=== PATIENT | female | born 1935 | race Caucasian/White ===

== ENCOUNTER 2019-11-28 07:54 | Outpatient (CLI) | payer MEDICARE, SELFPAY ==
[2019-11-28 09:30] LABS: Anion Gap 17.3 (5-19); Blood Urea Nitrogen 35 mg/dL (8-23); Calcium 8.8 mg/Dl (8.8-10.2); Carbon Dioxide 23 mmol/L (22-29); Chloride 100 mmol/L (98-107); Glucose 116 mg/dL (74-106); Potassium 4.3 mmol/L (3.5-5.1); Sodium 136 mmol/L (136-145)
== END 2019-11-28 07:55 | disposition home or self-care (01) ==
LOC: ONCMED 07:57
PROVIDERS: Family Provider Family Medicine; Visit Provider Internal Medicine Medical Oncology
DX: Z45.2 Encounter for adjustment and management of vascular access device (principal)
CPT/HCPCS: 36591; 80048

== ENCOUNTER 2019-12-29 07:49 | Outpatient (CLI) | payer MEDICARE, SELFPAY | END 2019-12-29 07:50 | disposition home or self-care (01) | LOC: ONCMED 07:51 | PROVIDERS: Family Provider Family Medicine; PCP Family Medicine; Visit Provider Internal Medicine Medical Oncology | DX: Z45.2 Encounter for adjustment and management of vascular access device (principal) | CPT/HCPCS: 96523 ==

== ENCOUNTER 2020-01-26 07:51 | Outpatient (CLI) | payer MEDICARE, SELFPAY | END 2020-01-26 07:52 | disposition home or self-care (01) | LOC: ONCMED 07:55 | PROVIDERS: Family Provider Family Medicine; PCP Family Medicine; Visit Provider Internal Medicine Medical Oncology | DX: Z45.2 Encounter for adjustment and management of vascular access device (principal) | CPT/HCPCS: 96523 ==

== ENCOUNTER 2020-02-28 09:30 | Outpatient (CLI) | payer MEDICARE, SELFPAY ==
[2020-02-28 09:59] LABS: Basophils % 0.7 %; Eosinophils # 0.2 10^3/uL (0.0-0.8); Eosinophils % 3.5 %; Hematocrit 30.6 % (37.0-47.0); Hemoglobin 9.6 g/dL (11.5-15.3); Lymphocytes # 1.6 10^3/uL (0.8-4.8); Mean Corpuscular HGB Conc 31.4 g/dL (30.0-36.0); Mean Corpuscular Volume 98.7 fL (81-99); Mean Platelet Volume 8.5 fL (7.4-10.4); Monocytes # 0.5 10^3/uL (0.2-0.9); Monocytes % 8.7 %; Neutrophils # 3.6 10^3/uL (1.8-7.7); Neutrophils % 60.9 %; Nucleated Red Blood Cells % 0 %; Platelet Count 355 10^3/cmm (130-400); Red Cell Distribution Width 12.6 % (12.1-15.1)
[2020-02-28 10:22] LABS: Alanine Aminotransferase 16 U/L (0-33); Albumin Level 4.1 g/dL (3.5-5.2); Alkaline Phosphatase 100 IU/L (35-105); Anion Gap 16.7 (5-19); Aspartate Amino Transferase 20 U/L (0-32); Blood Urea Nitrogen 40 mg/dL (8-23); Calcium 9.8 mg/dL (8.5-10.5); Carbon Dioxide 24 mmol/L (22-29); Chloride 105 mmol/L (98-107); Globulin 2.8 g/dL (1.3-4.6); Glucose 90 mg/dL (65-115); Osmolality Calculated 289 mOsm/kg (285-295); Potassium 4.7 mmol/L (3.5-5.1); Sodium 141 mmol/L (136-145); Thyroid Stimulating Hormone 3.74 uIU/mL (0.27-4.20); Total Bilirubin 0.3 mg/dL (0.15-1.2); Total Protein 6.9 g/dL (6.6-8.7)
--- NOTE | 2020-03-02 13:24 | ONC FU_ITS ---
Dr. aKplan Patient Follow-Up Note Patient: Roxane Krishnan Unit #: [id number]: 1935 Dicatated By: Juan Daniel Kaplan M.D.Date of Visit:Feb 28, 2020 Onc Med Follow-up/Prog Note Chief Complaint: Breast cancer/endometrial cancer. History of Present Illness: This is an 84 year-old woman with infiltrating lobular carcinoma of the left breast, stage IIA (T1mi, pN1a, M0) and stage IIIC2 endometrial cancer. The breast cancer occurred in association with multifocal comedo carcinoma in situ. There were microscopic foci of invasive lobular carcinoma. She underwent left modified radical mastectomy in June 2003. Pathology showed involvement in 1 of 12 axillary lymph nodes. The tumor was ER/FL positive and HER-2/radha negative. She was given adjuvant chemotherapy with FEC. Due to multiple toxicities, the treatment was stopped in September 2003 after completing 4 cycles. She was then given adjuvant hormonal therapy with tamoxifen. The hormonal treatment was changed to Arimidex as of February 2006. She continued treatment through September 2009. Thus far during followup, there has been no evidence of recurrence of her breast cancer. In April 2013 she presented with postmenopausal bleeding. She was found on D&C to have endometrial cancer. On 05/04/13 she underwent modified radical robotic-assisted total laparoscopic hysterectomy, bilateral salpingo-oophorectomy, and pelvic and periaortic lymphadenectomy. Pathology showed grade 1-2 adenocarcinoma which was superficially invasive. It measured 2 x 1.5 cm. There was no cervical or parametrial involvement. The maximum depth of myometrial invasion was 2 mm/16 mm. Margins were negative. There is no vascular or lymphatic invasion in the primary tumor, but there was involvement in 2 of 5 right para-aortic lymph nodes and in 2 of 7 right pelvic lymph nodes. The final staging was IIIC2 (pT1a, pN2, M0). The tumor was classified as grade 3 based on the fact that the specimen from the initial D&C procedure contained large areas of grade 3 adenocarcinoma. She was given postoperative external beam radiation to the pelvis and periaortic regions to a total dose of 45 Gy, which she completed on 08/25/2013. She subsequently completed intracavitary vaginal brachytherapy in [place]. At the recommendation of Dr. Camarillo, she was given adjuvant chemotherapy with carboplatin/Taxol. As of 02/13/2014 she had completed 4 cycles of treatment. She was then followed on observation/expectant management. Her other medical illnesses include hypertension, hyperlipidemia, hyperthyroidism, COPD, and GERD. She also has chronic kidney disease. She has remained moderately anemic following her chemotherapy and radiation. She has a history of smoking a pack of cigarettes daily for 35 years, but she quit smoking more than 15 years ago. INTERIM HISTORY: In September 2017 she had presented with significant pain in the lower back/pelvis area. Her CT abdomen/pelvis showed extensive bilateral sacral insufficiency fractures. There was no evidence of metastatic disease. She was referred for physical therapy. She had further evaluation with DEXA scan on 10/21/2017. It showed evidence of osteopenia with T score -0.5 and lumbar spine, -2.1 in the left femoral neck, and -2.3 in the right femoral neck. She did agree to start treatment with Prolia in January 2018. She is seen for a scheduled visit. Her main complaint is that her left hip has been hurting, enough that at times it is difficult for her to bear weight. She thinks it is getting better gradually. She has had similar episodes twice in the past. She still complains that she does not have a whole lot of energy. Her activity is limited. ECOG score is 2. She has good appetite. She has no fever or night sweats. She has a little bit of sinus drainage. She does get short of breath really easy. She has a little bit of cough in the mornings. She does not complain of chest pain. She has no GI/ complaints other than diarrhea, which is chronic and adequately managed with Imodium. She currently has no other joint or bone pain. She does not complain of headache. She occasionally has dizziness. She has residual neuropathy, which is unchanged. Medications: Advair Diskus 1 (250-50 mcg/dose) Aerosol Powder, Breath Activated Inhalation b.i.d., Albuterol Sulfate 1 (108 (90 base) mcg/act) Aerosol Powder, Breath Activated Inhalation four times a day PRN, B-12 1 (500 mcg) Tablet Oral daily, Fish Oil 1000 mg - Take 1 Capsule Oral daily, Imodium A-D 1 Tablet (of 4 mg) Oral b.i.d. PRN, Magnesium 1 Tablet (of 400 mg) Oral daily, Propylthiouracil 50 mg - Take 2 Tablet Oral b.i.d., Vitamin D3 1 Capsule Oral daily Allergies: BLEACH, Cephalexin, KEFLEX, and LEVAQUIN. Review of Systems: Constitutional - Her energy level is low. She is mainly sedentary at home. Appetite is good and weight is stable. No fever, chills, hot flashes, or night sweats. ECOG score is 2, ENMT - She has some sinus congestion/drainage. No mouth sores. No sore throat or difficulty swallowing, Hematologic/Lymphatic - No abnormal bruising or bleeding, Respiratory - She gets shortness of breath with activity. No cough. No pleuritic pain or hemoptysis, Cardiovascular - No angina pain. No palpitations, Gastrointestinal - No nausea or vomiting. No heartburn or acid reflux. She has diarrhea that is managed with Imodium. No constipation. No blood in the stool or black stools, Genitourinary (F) - No dysuria or hematuria. No urinary frequency. No urgency or incontinence, Musculoskeletal - She has pain in her left hip, Integumentary - No skin complications, Neurologic - No headache or dizziness. She has numbness and tingling in her feet, unchanged, Psychiatric - No anxiety or depression. No insomnia. Vital Signs: Performed on Feb 28, 2020 10:37 Height - 62.00 in Weight - 148.0 lbs (HIGH) BSA - 1.68 sq.m BMI - 27.07 Temperature - 97.7 F (LOW) Pulse - 75 /min Respiration - 18 /min BP - 130/62 mm(hg) O2 Sat - 98 % Pain - 9 Physical Examination: Constitutional - She appears somewhat frail generally, Eyes - Sclerae nonicteric. Conjunctivae clear, ENMT - No lesions noted in the oral cavity, Hematologic/Lymphatic - No cervical, clavicular, or axillary adenopathy, Respiratory - Lungs sound clear with diminished air movement bilaterally, Cardiovascular - Heart rhythm is regular. There is no murmur, gallop, or rub noted, Abdomen - Soft. Liver and spleen are not enlarged. There is no abdominal mass or ascites noted and there is no inguinal adenopathy, Extremities - Trace edema, Neurologic - No focal neurologic deficits noted. Lab/Imaging: Test performed on Feb 28, 2020 09:45 Sodium 141 mmol/L TSH 3.74 uIU/mL Potassium 4.7 mmol/L Chloride 105 mmol/L CO2 24 mmol/L Anion Gap 16.7 BUN 40 mg/dL Creatinine 2.1 mg/dL Cr Clearance (Est) 21.89 mL/min Glucose 90 mg/dL Calcium 9.8 mg/dL Protein, Total 6.9 g/dL Albumin 4.1 g/dL Globulin 2.8 g/dL Bilirubin, Total 0.3 mg/dL ALT (SGPT) 16 U/L AST (SGOT) 20 U/L Alkaline Phosphatase 100 IU/L WBC 6.0 10 3/uL RBC 3.10 10 6/uL HGB 9.6 g/dL HCT 30.6 % MCV 98.7 fL MCH 31.0 pg MCHC 31.4 g/dL RDW 12.6 % Platelet Count 355 10 3/cmm MPV 8.5 fL Neutrophils 3.6 10 3/uL Lymphocytes 1.6 10 3/uL Monocytes 0.5 10 3/uL Eosinophils 0.2 10 3/uL Basophils 0.0 10 3/uL Neutrophil % 60.9 % Lymphocyte % 26.0 % Monocyte % 8.7 % Eosinophil % 3.5 % Basophils % 0.7 % Impression: 1. Patient with grade 3 adenocarcinoma of the endometrium, stage IIIC2 (pT1a, pN2, M0). Treatment included robotic-assisted total laparoscopic hysterectomy/bilateral salpingo-oophorectomy and pelvic and periaortic lymph node dissection on 05/04/13 followed by postoperative external beam radiation to the pelvis and periaortic lymph nodes followed by intracavitary vaginal brachial therapy. 2. She was then given adjuvant chemotherapy with 4 cycles of carboplatin/Taxol, which she completed in February 2014. Toxicities included anemia and peripheral neuropathy. She recovered pretty well from the chemotherapy, though she has had residual neuropathy. 3. She has additional history of infiltrating lobular carcinoma the left breast, stage IIA, ER/FL positive and HER-2/radha negative. Her treatment included left modified radical mastectomy in June 2003 followed by adjuvant chemotherapy and adjuvant hormonal therapy. 4. During followup she has remained moderately anemic. Her other medical illnesses include: 5. Hypertension. 6. Hyperlipidemia. 7. Chronic kidney disease. 8. COPD. 9. GERD. 10. Hyperthyroidism. During her follow-up she has had evidence of chronic kidney disease, but was stable renal function, and she has been mildly anemic. In September 2017 she had presented with significant pain in the lower back/pelvis area. Her CT abdomen/pelvis at that time showed extensive bilateral sacral insufficiency fractures. There was no evidence of metastatic disease. Her bone density in October 2017 showed T score -0.5 in the lumbar spine, -2.1 in the left femoral neck, and -2.3 in the right femoral neck. She started treatment with Prolia in January 2018. As of her follow-up visit in August 2019 she had reported worsening back pain, but seems to have improved. Recently, though, she has been having significant pain in the left hip area, enough that at times it is difficult for her to bear weight. She thinks it is getting better, and she has had similar episodes on 2 occasions in the past. Overall, she continues to have somewhat marginal performance status, but there has been no evidence of recurrence of the breast cancer or the endometrial cancer. Plan: She remains on observation/expectant management for the breast cancer and the endometrial cancer. She will be given Prolia 60 mg by subcutaneous injection for the osteoporosis. She will be scheduled for a follow-up visit in 6 months. In the meantime, she is to let us know if the hip pain is not getting better. Signed By: Juan Daniel Kaplan M.D. <<Signature on File>>
== END 2020-02-28 09:31 | disposition home or self-care (01) ==
LOC: ONCMED 09:30
PROVIDERS: Family Provider Family Medicine; PCP Family Medicine; Visit Provider Internal Medicine Medical Oncology
DX: M81.0 Age-related osteoporosis without current pathological fracture; D64.9 Anemia, unspecified; E78.49 Other hyperlipidemia; J44.9 Chronic obstructive pulmonary disease, unspecified; K21.9 Gastro-esophageal reflux disease without esophagitis; E03.8 Other specified hypothyroidism; M25.552 Pain in left hip; E05.90 Thyrotoxicosis, unspecified without thyrotoxic crisis or storm; G62.0 Drug-induced polyneuropathy; T45.1X5D Adverse effect of antineoplastic and immunosuppressive drugs, subsequent encounter; I12.9 Hypertensive chronic kidney disease with stage 1 through stage 4 chronic kidney disease, or unspecified chronic kidney disease; N18.9 Chronic kidney disease, unspecified; Z92.21 Personal history of antineoplastic chemotherapy; Z92.3 Personal history of irradiation; Z87.891 Personal history of nicotine dependence; Z90.710 Acquired absence of both cervix and uterus; Z90.12 Acquired absence of left breast and nipple; Z92.23 Personal history of estrogen therapy; Z85.3 Personal history of malignant neoplasm of breast; Z85.42 Personal history of malignant neoplasm of other parts of uterus
CPT/HCPCS: 36591; 80053; 84443; 85025; 96372; 99214; J0897

== ENCOUNTER 2020-03-29 07:53 | Outpatient (CLI) | payer MEDICARE, SELFPAY | END 2020-03-29 07:54 | disposition home or self-care (01) | LOC: ONCMED 07:55 | PROVIDERS: PCP Family Medicine; Visit Provider Internal Medicine Medical Oncology | DX: Z45.2 Encounter for adjustment and management of vascular access device (principal); C50.812 Malignant neoplasm of overlapping sites of left female breast; Z17.0 Estrogen receptor positive status [ER+]; D64.89 Other specified anemias | CPT/HCPCS: 96523 ==

== ENCOUNTER 2020-04-26 07:50 | Outpatient (CLI) | payer MEDICARE, SELFPAY | END 2020-04-26 07:51 | disposition home or self-care (01) | LOC: ONCMED 07:52 | PROVIDERS: PCP Family Medicine; Visit Provider Internal Medicine Medical Oncology | DX: Z45.2 Encounter for adjustment and management of vascular access device (principal) | CPT/HCPCS: 96523 ==

== ENCOUNTER 2020-05-29 07:47 | Outpatient (CLI) | payer MEDICARE, SELFPAY ==
[2020-05-29 09:11] LABS: Anion Gap 15.1 (5-19); Blood Urea Nitrogen 32 mg/dL (8-23); Calcium 8.8 mg/dL (8.5-10.5); Carbon Dioxide 23 mmol/L (22-29); Chloride 103 mmol/L (98-107); Glucose 103 mg/dL (65-115); Osmolality Calculated 279 mOsm/kg (285-295); Potassium 5.1 mmol/L (3.5-5.1); Sodium 136 mmol/L (136-145)
[2020-05-29 09:12] LABS: Urine Protein Random 5 mg/dL
== END 2020-05-29 07:48 | disposition home or self-care (01) ==
LOC: ONCMED 07:48
PROVIDERS: PCP Family Medicine; Visit Provider Internal Medicine Medical Oncology
DX: N18.3 Chronic kidney disease, stage 3 (moderate) (principal)
CPT/HCPCS: 36591; 80048; 84156

== ENCOUNTER 2020-06-28 08:04 | Outpatient (CLI) | payer MEDICARE, SELFPAY | END 2020-06-28 08:05 | disposition home or self-care (01) | LOC: ONCMED 08:06 | PROVIDERS: PCP Family Medicine; Visit Provider Internal Medicine Medical Oncology | DX: Z45.2 Encounter for adjustment and management of vascular access device (principal) | CPT/HCPCS: 96523 ==

== ENCOUNTER 2020-07-30 07:54 | Outpatient (CLI) | payer MEDICARE, SELFPAY | END 2020-07-30 07:55 | disposition home or self-care (01) | LOC: ONCMED 07:55 | PROVIDERS: PCP Family Medicine; Visit Provider Internal Medicine Medical Oncology | DX: Z45.2 Encounter for adjustment and management of vascular access device (principal) | CPT/HCPCS: 96523 ==

== ENCOUNTER 2020-08-27 07:56 | Outpatient (CLI) | payer MEDICARE, SELFPAY ==
--- NOTE | 2020-08-27 07:59 | MM_ITS ---
WS: [id number] DIAGNOSTIC RIGHT DIGITAL MAMMOGRAM WITH CAD HISTORY: HX OF BREAST CA;LT cystectomy. COMPARISON: 09/08/2012 Technique: CC, MLO and ML views. Breast composition: There are scattered areas of fibroglandular density. There are numerous scattere d benign-appearing calcifications throughout the breast. No nipple retraction or mass. No architectur [place] distortion. MM/[place] [id number] IMPRESSION: BI-RADS: 2-Benign FOLLOW UP: 1 Year Follow-up
== END 2020-08-27 07:57 | disposition home or self-care (01) ==
LOC: ONCMED 07:57
PROVIDERS: PCP Family Medicine; Visit Provider Internal Medicine Medical Oncology
DX: Z85.3 Personal history of malignant neoplasm of breast (principal)
CPT/HCPCS: 77065

== ENCOUNTER 2020-08-29 06:07 | Outpatient (CLI) | payer MEDICARE, SELFPAY ==
[2020-08-29 08:40] LABS: Basophils # 0.1 10^3/uL (0.0-0.1); Eosinophils # 0.4 10^3/uL (0.0-0.8); Hematocrit 29.5 % (37.0-47.0); Hemoglobin 8.9 g/dL (11.5-15.3); Lymphocytes # 1.5 10^3/uL (0.8-4.8); Mean Corpuscular HGB Conc 30.2 g/dL (30.0-36.0); Mean Corpuscular Hemoglobin 29.5 pg (28.0-34.0); Mean Corpuscular Volume 97.7 fL (81-99); Mean Platelet Volume 8.5 fL (7.4-10.4); Monocytes # 0.5 10^3/uL (0.2-0.9); Monocytes % 6.9 %; Neutrophils # 4.37 10^3/uL (1.8-7.7); Neutrophils % 63.8 %; Nucleated Red Blood Cells % 0 %; Platelet Count 304 10^3/cmm (130-400); Red Blood Count 3.02 10^6/uL (4.1-5.3); Red Cell Distribution Width 12.9 % (12.1-15.1); White Blood Count 6.9 10^3/uL (4.0-10.0)
[2020-08-29 09:17] LABS: 25 Hydroxy Vitamin D 35 ng/mL (30-100); Alanine Aminotransferase 16 U/L (0-33); Albumin Level 4.1 g/dL (3.5-5.2); Alkaline Phosphatase 81 IU/L (35-105); Anion Gap 16.6 (5-19); Aspartate Amino Transferase 17 U/L (0-32); Blood Urea Nitrogen 40 mg/dL (8-23); Calcium 9.5 mg/dL (8.5-10.5); Carbon Dioxide 21 mmol/L (22-29); Chloride 102 mmol/L (98-107); Glucose 108 mg/dL (65-115); Osmolality Calculated 290 mOsm/kg (285-295); Potassium 4.6 mmol/L (3.5-5.1); Sodium 135 mmol/L (136-145); Thyroid Stimulating Hormone 3.06 uIU/mL (0.27-4.20); Total Bilirubin 0.3 mg/dL (0.15-1.2); Total Protein 7.1 g/dL (6.6-8.7)
[2020-08-29] MEDS: denosumab 60 mg SDV SUBCUT (10:30)
--- NOTE | 2020-09-01 18:12 | ONC FU_ITS ---
Dr. Kaplan Patient Follow-Up Note Patient: Roxane Krishnan Unit #: [id number]: [id number] Dicatated By: Juan Daniel Kaplan M.D.Date of Visit:Aug 29, 2020 Onc Med Follow-up/Prog Note Chief Complaint: Breast cancer/endometrial cancer. History of Present Illness: This is an 85 year-old woman with infiltrating lobular carcinoma of the left breast, stage IIA (T1mi, pN1a, M0) and stage IIIC2 endometrial cancer. The breast cancer occurred in association with multifocal comedo carcinoma in situ. There were microscopic foci of invasive lobular carcinoma. She underwent left modified radical mastectomy in June 2003. Pathology showed involvement in 1 of 12 axillary lymph nodes. The tumor was ER/IN positive and HER-2/radha negative. She was given adjuvant chemotherapy with FEC. Due to multiple toxicities, the treatment was stopped in September 2003 after completing 4 cycles. She was then given adjuvant hormonal therapy with tamoxifen. The hormonal treatment was changed to Arimidex as of February 2006. She continued treatment through September 2009. Thus far during followup, there has been no evidence of recurrence of her breast cancer. In April 2013 she presented with postmenopausal bleeding. She was found on D&C to have endometrial cancer. On 05/04/13 she underwent modified radical robotic-assisted total laparoscopic hysterectomy, bilateral salpingo-oophorectomy, and pelvic and periaortic lymphadenectomy. Pathology showed grade 1-2 adenocarcinoma which was superficially invasive. It measured 2 x 1.5 cm. There was no cervical or parametrial involvement. The maximum depth of myometrial invasion was 2 mm/16 mm. Margins were negative. There is no vascular or lymphatic invasion in the primary tumor, but there was involvement in 2 of 5 right para-aortic lymph nodes and in 2 of 7 right pelvic lymph nodes. The final staging was IIIC2 (pT1a, pN2, M0). The tumor was classified as grade 3 based on the fact that the specimen from the initial D&C procedure contained large areas of grade 3 adenocarcinoma. She was given postoperative external beam radiation to the pelvis and periaortic regions to a total dose of 45 Gy, which she completed on 08/25/2013. She subsequently completed intracavitary vaginal brachytherapy in [place]. At the recommendation of Dr. Camarillo, she was given adjuvant chemotherapy with carboplatin/Taxol. As of 02/13/2014 she had completed 4 cycles of treatment. She was then followed on observation/expectant management. Her other medical illnesses include hypertension, hyperlipidemia, hyperthyroidism, COPD, and GERD. She also has chronic kidney disease. She has remained moderately anemic following her chemotherapy and radiation. She has a history of smoking a pack of cigarettes daily for 35 years, but she quit smoking more than 15 years ago. INTERIM HISTORY: In September 2017 she had presented with significant pain in the lower back/pelvis area. Her CT abdomen/pelvis showed extensive bilateral sacral insufficiency fractures. There was no evidence of metastatic disease. She was referred for physical therapy. She had further evaluation with DEXA scan on 10/21/2017. It showed evidence of osteopenia with T score -0.5 and lumbar spine, -2.1 in the left femoral neck, and -2.3 in the right femoral neck. She did agree to start treatment with Prolia in January 2018. She is seen for a scheduled visit. She has been feeling pretty good generally, though she does complain of having tiredness in her legs. She says she cannot stay on her feet very long. She is trying to walk more, and she is able to do some light housework. ECOG score is 1. She has good appetite. She has no fever, night sweats, or hot flashes. She has some shortness of breath. She has just occasional cough. She does not complain of chest pain. She has no GI complaints. She sometimes has difficulty voiding, particularly in the mornings. She has no significant joint or bone pain. She does not complain of headache. She does have a lot of dysequilibrium, and she occasionally has dizziness. She has numbness/tingling in her feet. Medications: Advair Diskus 1 (250-50 mcg/dose) Aerosol Powder, Breath Activated Inhalation b.i.d., Albuterol Sulfate 1 (108 (90 base) mcg/act) Aerosol Powder, Breath Activated Inhalation four times a day PRN, B-12 1 (500 mcg) Tablet Oral daily, Fish Oil 1000 mg - Take 1 Capsule Oral daily, Imodium A-D 1 Tablet (of 4 mg) Oral b.i.d. PRN, Magnesium 1 Tablet (of 400 mg) Oral daily, Propylthiouracil 50 mg - Take 2 Tablet Oral b.i.d., Vitamin D3 1 Capsule Oral daily Allergies: BLEACH, Cephalexin, KEFLEX, and LEVAQUIN. Review of Systems: Constitutional - She complains of having tiredness in her legs. Her activity is limited, but she is trying to walk. She is able to do some light housework. Appetite is good. She has no fever, night sweats, or hot flashes. ECOG score is 1, ENMT - No sinus congestion/drainage. No mouth sores. No sore throat or difficulty swallowing, Hematologic/Lymphatic - No abnormal bruising or bleeding, Respiratory - She has some shortness of breath. She has occasional cough. No pleuritic pain or hemoptysis, Cardiovascular - No angina pain. No palpitations, Gastrointestinal - No nausea or vomiting. No heartburn or acid reflux. No diarrhea or constipation. No blood in the stool or black stools, Genitourinary (F) - She sometimes has difficulty voiding. No dysuria or hematuria. No urinary frequency. No urgency or incontinence, Musculoskeletal - No joint or bone pain, Neurologic - No headache. She has a lot of dysequilibrium and she occasionally has dizziness. She has numbness/tingling in her feet, Psychiatric - No anxiety or depression. No insomnia. Vital Signs: Performed on Aug 29, 2020 09:56 Height - 62.00 in Weight - 148.8 lbs (HIGH) BSA - 1.69 sq.m BMI - 27.22 Temperature - 97.8 F (LOW) Pulse - 96 /min Respiration - 24 /min BP - 153/53 mm(hg) (HIGH) O2 Sat - 96 % Pain - 0 Physical Examination: Constitutional - She appears somewhat frail generally, Eyes - Sclerae nonicteric. Conjunctivae clear, ENMT - No lesions noted in the oral cavity, Hematologic/Lymphatic - No cervical, clavicular, or axillary adenopathy, Respiratory - Lungs sound clear, Cardiovascular - Heart rhythm is regular. There is no murmur, gallop, or rub noted, Abdomen - Soft. Liver and spleen are not enlarged. There is no abdominal mass or ascites noted and there is no inguinal adenopathy, Extremities - No edema. Dorsalis pedis pulses are palpable bilaterally, Neurologic - No focal neurologic deficits noted. Lab/Imaging: Test performed on Aug 29, 2020 08:00 Sodium 135 mmol/L CO2 21 mmol/L BUN 40 mg/dL Creatinine 1.8 mg/dL Cr Clearance (Est) 25.23 mL/min WBC 6.9 10 3/uL RBC 3.02 10 6/uL HGB 8.9 g/dL HCT 29.5 % MCV 97.7 fL MCH 29.5 pg MCHC 30.2 g/dL RDW 12.9 % Platelet Count 304 10 3/cmm MPV 8.5 fL Neutrophils 4.37 10 3/uL Lymphocytes 1.5 10 3/uL Monocytes 0.5 10 3/uL Eosinophils 0.4 10 3/uL Basophils 0.1 10 3/uL Neutrophil % 63.8 % Lymphocyte % 22.0 % Monocyte % 6.9 % Eosinophil % 6.0 % Basophils % 1.0 % NRBC % 0 % Impression: 1. Patient with grade 3 adenocarcinoma of the endometrium, stage IIIC2 (pT1a, pN2, M0). Treatment included robotic-assisted total laparoscopic hysterectomy/bilateral salpingo-oophorectomy and pelvic and periaortic lymph node dissection on 05/04/13 followed by postoperative external beam radiation to the pelvis and periaortic lymph nodes followed by intracavitary vaginal brachial therapy. 2. She was then given adjuvant chemotherapy with 4 cycles of carboplatin/Taxol, which she completed in February 2014. Toxicities included anemia and peripheral neuropathy. She recovered pretty well from the chemotherapy, though she has had residual neuropathy. 3. She has additional history of infiltrating lobular carcinoma the left breast, stage IIA, ER/IN positive and HER-2/radha negative. Her treatment included left modified radical mastectomy in June 2003 followed by adjuvant chemotherapy and adjuvant hormonal therapy. 4. During followup she has remained moderately anemic. Her other medical illnesses include: 5. Hypertension. 6. Hyperlipidemia. 7. Chronic kidney disease. 8. COPD. 9. GERD. 10. Hyperthyroidism. During her follow-up she has had evidence of chronic kidney disease, but was stable renal function, and she has been mildly anemic. In September 2017 she had presented with significant pain in the lower back/pelvis area. Her CT abdomen/pelvis at that time showed extensive bilateral sacral insufficiency fractures. There was no evidence of metastatic disease. Her bone density in October 2017 showed T score -0.5 in the lumbar spine, -2.1 in the left femoral neck, and -2.3 in the right femoral neck. She started treatment with Prolia in January 2018. During follow-up she has continued to have somewhat marginal performance status. She has been moderately anemic, and she now has had some further decline in her hemoglobin/hematocrit levels. There has been no evidence, though, of recurrence of the endometrial cancer or the breast cancer. Plan: She remains on observation/expectant management for the breast cancer and for the endometrial cancer. She will be given Prolia 60 mg by subcutaneous injection for the osteoporosis. She will be scheduled for a follow-up visit in 6 months. In the meantime, with her next port flush I will obtain additional laboratory studies for the anemia. Depending on the findings and depending on verification of insurance coverage, I may consider treating her with an erythropoietin stimulating agent. Signed By: Juan Daniel Kaplan M.D. <<Signature on File>>
== END 2020-08-29 06:08 | disposition home or self-care (01) ==
LOC: ONCMED 06:09
PROVIDERS: PCP Family Medicine; Visit Provider Internal Medicine Medical Oncology
DX: C50.812 Malignant neoplasm of overlapping sites of left female breast (principal); Z17.0 Estrogen receptor positive status [ER+]; G62.0 Drug-induced polyneuropathy; T45.1X5A Adverse effect of antineoplastic and immunosuppressive drugs, initial encounter; M81.0 Age-related osteoporosis without current pathological fracture; E03.9 Hypothyroidism, unspecified; E55.9 Vitamin D deficiency, unspecified; I10 Essential (primary) hypertension; E78.5 Hyperlipidemia, unspecified; N18.9 Chronic kidney disease, unspecified; J44.9 Chronic obstructive pulmonary disease, unspecified; K21.9 Gastro-esophageal reflux disease without esophagitis; Z23 Encounter for immunization
CPT/HCPCS: 36591; 80053; 82306; 84443; 85025; 90471; 90686; 96372; 99214; J0897

== ENCOUNTER 2020-09-27 08:49 | Outpatient (CLI) | payer MEDICARE, SELFPAY ==
[2020-09-27 10:19] LABS: Basophils # 0.1 10^3/uL (0.0-0.1); Basophils % 0.9 %; Eosinophils # 0.3 10^3/uL (0.0-0.8); Eosinophils % 4.5 %; Lymphocytes # 1.5 10^3/uL (0.8-4.8); Lymphocytes % 22.2 %; Mean Corpuscular Hemoglobin 29.5 pg (28.0-34.0); Mean Corpuscular Volume 98.4 fL (81-99); Mean Platelet Volume 8.8 fL (7.4-10.4); Monocytes # 0.5 10^3/uL (0.2-0.9); Monocytes % 7.4 %; Neutrophils # 4.27 10^3/uL (1.8-7.7); Neutrophils % 64.5 %; Nucleated Red Blood Cells % 0 %; Platelet Count 381 10^3/cmm (130-400); Red Blood Count 3.05 10^6/uL (4.1-5.3); Red Cell Distribution Width 13.1 % (12.1-15.1); White Blood Count 6.6 10^3/uL (4.0-10.0)
[2020-09-27 11:05] LABS: Alanine Aminotransferase 18 U/L (0-33); Alkaline Phosphatase 79 IU/L (35-105); Anion Gap 15.5 (5-19); Aspartate Amino Transferase 18 U/L (0-32); Blood Urea Nitrogen 33 mg/dL (8-23); Calcium 9.2 mg/dL (8.5-10.5); Carbon Dioxide 22 mmol/L (22-29); Chloride 101 mmol/L (98-107); Ferritin 232 ng/mL (15-150); Globulin 2.8 g/dL (1.3-4.6); Glucose 89 mg/dL (65-115); Iron 66 ug/dL (37-145); Lactate Dehydrogenase 185 U/L (135-214); Osmolality Calculated 285 mOsm/kg (285-295); Percent Saturation 31.7 % (20-50); Potassium 4.5 mmol/L (3.5-5.1); Sodium 134 mmol/L (136-145); Total Bilirubin 0.2 mg/dL (0.15-1.2); Total Iron Binding Capacity 208 mcg/dl; Total Protein 6.8 g/dL (6.6-8.7); Unsaturated Iron Binding 142 ug/dL (112-347)
[2020-09-27 11:29] LABS: Erythrocyte Sedimentation Rate 62 mm/hr (0-15)
[2020-09-27 13:33] LABS: Vitamin B12 > 2000 pg/mL (232-1245)
[2020-09-28 10:47] LABS: PROTEIN, TOTAL 6.5 g/dL (6.1-8.1)
[2020-09-30 12:48] LABS: ALBUMIN 3.7 g/dL (3.8-4.8); ALPHA 1 GLOBULIN 0.3 g/dL (0.2-0.3); ALPHA 2 GLOBULIN 0.9 g/dL (0.5-0.9); BETA 1 GLOBULIN 0.4 g/dL (0.4-0.6); BETA 2 GLOBULIN 0.3 g/dL (0.2-0.5)
[2020-09-30 16:18] LABS: Erythropoietin 12.1 mIU/mL (2.6-18.5); KAPPA LIGHT CHAIN, FREE, SERUM 62.1 mg/L (3.3-19.4); KAPPA/LAMBDA LIGHT CHAINS FREE 2.24 (0.26-1.65); LAMBDA LIGHT CHAIN, FREE, SERU 27.7 mg/L (5.7-26.3)
== END 2020-09-27 08:50 | disposition home or self-care (01) ==
LOC: ONCMED 08:51
PROVIDERS: PCP Family Medicine; Visit Provider Internal Medicine Medical Oncology
DX: C50.812 Malignant neoplasm of overlapping sites of left female breast (principal); D64.89 Other specified anemias; C54.8 Malignant neoplasm of overlapping sites of corpus uteri; Z17.0 Estrogen receptor positive status [ER+]; G62.0 Drug-induced polyneuropathy; T50.905A Adverse effect of unspecified drugs, medicaments and biological substances, initial encounter
CPT/HCPCS: 36591; 80053; 82607; 82668; 82728; 83010; 83540; 83550; 83615; 83883; 84155; 84165; 85025; 85045; 85651

== ENCOUNTER 2020-10-25 08:14 | Outpatient (CLI) | payer MEDICARE, SELFPAY | END 2020-10-25 08:15 | disposition home or self-care (01) | LOC: ONCMED 08:16 | PROVIDERS: PCP Family Medicine; Visit Provider Internal Medicine Medical Oncology | DX: Z45.2 Encounter for adjustment and management of vascular access device (principal) | CPT/HCPCS: 96523 ==

== ENCOUNTER 2020-11-22 08:16 | Outpatient (CLI) | payer MEDICARE, SELFPAY | END 2020-11-22 08:17 | disposition home or self-care (01) | PROVIDERS: PCP Family Medicine; Visit Provider Nurse Practitioner | DX: Z45.2 Encounter for adjustment and management of vascular access device (principal) | CPT/HCPCS: 96523 ==

== ENCOUNTER 2021-01-02 08:21 | Outpatient (CLI) | payer MEDICARE, SELFPAY | END 2021-01-02 08:22 | disposition home or self-care (01) | PROVIDERS: PCP Family Medicine; Visit Provider Nurse Practitioner | DX: Z45.2 Encounter for adjustment and management of vascular access device (principal) | CPT/HCPCS: 96523 ==

== ENCOUNTER 2021-01-24 08:17 | Outpatient (CLI) | payer MEDICARE, SELFPAY | END 2021-01-24 08:18 | disposition home or self-care (01) | LOC: ONCMED 08:18 | PROVIDERS: PCP Family Medicine; Visit Provider Nurse Practitioner | DX: Z45.2 Encounter for adjustment and management of vascular access device (principal) | CPT/HCPCS: 96523 ==

== ENCOUNTER 2021-03-04 15:49 | Outpatient (CLI) | payer MEDICARE, SELFPAY ==
[2021-03-04] MEDS: alteplase 1 mg/mL SDV 2 mL 2 MG IV (16:18)
[2021-03-04 16:52] LABS: Basophils # 0.1 10^3/uL (0.0-0.1); Basophils % 0.9 %; Eosinophils # 0.4 10^3/uL (0.0-0.8); Eosinophils % 5.7 %; Hemoglobin 9.5 g/dL (11.5-15.3); Lymphocytes # 1.8 10^3/uL (0.8-4.8); Lymphocytes % 26.7 %; Mean Corpuscular HGB Conc 30.6 g/dL (30.0-36.0); Mean Corpuscular Hemoglobin 29.8 pg (28.0-34.0); Mean Corpuscular Volume 97.2 fL (81-99); Mean Platelet Volume 10.1 fL (7.4-10.4); Monocytes # 0.6 10^3/uL (0.2-0.9); Monocytes % 8.4 %; Neutrophils # 3.94 10^3/uL (1.8-7.7); Nucleated Red Blood Cells % 0 %; Platelet Count 339 10^3/cmm (130-400); Red Blood Count 3.19 10^6/uL (4.1-5.3); Red Cell Distribution Width 12.8 % (12.1-15.1); White Blood Count 6.8 10^3/uL (4.0-10.0)
[2021-03-04 17:49] LABS: 25 Hydroxy Vitamin D 37 ng/mL (30-100); Alanine Aminotransferase 15 U/L (0-33); Alkaline Phosphatase 83 IU/L (35-105); Aspartate Amino Transferase 17 U/L (0-32); Blood Urea Nitrogen 36 mg/dL (8-23); Calcium 9.2 mg/dL (8.5-10.5); Carbon Dioxide 24 mmol/L (22-29); Chloride 104 mmol/L (98-107); Globulin 2.7 g/dL (1.3-4.6); Glucose 111 mg/dL (65-115); Osmolality Calculated 299 mOsm/kg (285-295); Sodium 140 mmol/L (136-145); Total Bilirubin 0.2 mg/dL (0.15-1.2); Total Protein 6.7 g/dL (6.6-8.7)
[2021-03-04 18:04] LABS: Anion Gap 16.2 (5-19); Potassium 4.2 mmol/L (3.5-5.1)
== END 2021-03-04 15:50 | disposition home or self-care (01) ==
PROVIDERS: PCP Family Medicine; Visit Provider Internal Medicine Medical Oncology
DX: C50.812 Malignant neoplasm of overlapping sites of left female breast (principal); Z17.0 Estrogen receptor positive status [ER+]; C54.8 Malignant neoplasm of overlapping sites of corpus uteri; D64.89 Other specified anemias; G62.0 Drug-induced polyneuropathy; T45.1X5A Adverse effect of antineoplastic and immunosuppressive drugs, initial encounter; D64.9 Anemia, unspecified; M81.0 Age-related osteoporosis without current pathological fracture; E55.9 Vitamin D deficiency, unspecified
CPT/HCPCS: 36415; 36593; 80053; 82306; 85025; 96374; J2997

== ENCOUNTER 2021-03-05 07:06 | Outpatient (CLI) | payer MEDICARE, SELFPAY ==
[2021-03-05] MEDS: denosumab 60 mg SDV SUBCUT (09:45)
--- NOTE | 2021-03-09 09:02 | ONC FU_ITS ---
Dr. Kaplan Patient Follow-Up Note Patient: Roxane Krishnan Unit #: [id number]: 1935 Dicatated By: Juan Daniel Kaplan M.D.Date of Visit:Mar 05, 2021 Onc Med Follow-up/Prog Note Chief Complaint: Breast cancer/endometrial cancer. History of Present Illness: This is an 85 year-old woman with infiltrating lobular carcinoma of the left breast, stage IIA (T1mi, pN1a, M0) and stage IIIC2 endometrial cancer. The breast cancer occurred in association with multifocal comedo carcinoma in situ. There were microscopic foci of invasive lobular carcinoma. She underwent left modified radical mastectomy in June 2003. Pathology showed involvement in 1 of 12 axillary lymph nodes. The tumor was ER/NM positive and HER-2/radha negative. She was given adjuvant chemotherapy with FEC. Due to multiple toxicities, the treatment was stopped in September 2003 after completing 4 cycles. She was then given adjuvant hormonal therapy with tamoxifen. The hormonal treatment was changed to Arimidex as of February 2006. She continued treatment through September 2009. Thus far during followup, there has been no evidence of recurrence of her breast cancer. In April 2013 she presented with postmenopausal bleeding. She was found on D&C to have endometrial cancer. On 05/04/13 she underwent modified radical robotic-assisted total laparoscopic hysterectomy, bilateral salpingo-oophorectomy, and pelvic and periaortic lymphadenectomy. Pathology showed grade 1-2 adenocarcinoma which was superficially invasive. It measured 2 x 1.5 cm. There was no cervical or parametrial involvement. The maximum depth of myometrial invasion was 2 mm/16 mm. Margins were negative. There is no vascular or lymphatic invasion in the primary tumor, but there was involvement in 2 of 5 right para-aortic lymph nodes and in 2 of 7 right pelvic lymph nodes. The final staging was IIIC2 (pT1a, pN2, M0). The tumor was classified as grade 3 based on the fact that the specimen from the initial D&C procedure contained large areas of grade 3 adenocarcinoma. She was given postoperative external beam radiation to the pelvis and periaortic regions to a total dose of 45 Gy, which she completed on 08/25/2013. She subsequently completed intracavitary vaginal brachytherapy in [place]. At the recommendation of Dr. Camarillo, she was given adjuvant chemotherapy with carboplatin/Taxol. As of 02/13/2014 she had completed 4 cycles of treatment. She was then followed on observation/expectant management. Her other medical illnesses include hypertension, hyperlipidemia, hyperthyroidism, COPD, and GERD. She also has chronic kidney disease. She has remained moderately anemic following her chemotherapy and radiation. She has a history of smoking a pack of cigarettes daily for 35 years, but she quit smoking more than 15 years ago. INTERIM HISTORY: In September 2017 she had presented with significant pain in the lower back/pelvis area. Her CT abdomen/pelvis showed extensive bilateral sacral insufficiency fractures. There was no evidence of metastatic disease. She was referred for physical therapy. She had further evaluation with DEXA scan on 10/21/2017. It showed evidence of osteopenia with T score -0.5 and lumbar spine, -2.1 in the left femoral neck, and -2.3 in the right femoral neck. She did agree to start treatment with Prolia in January 2018. She is seen for a scheduled visit. She has been feeling more tired, and she does have limited activity. She is able to do only a little bit of light housework. Her main complaint is that her legs can scarcely support her for more than a block before they start feeling weak and numb. Her ECOG score is 2. She has good appetite. She has not had fever. She occasionally has sweating at night. She complains that her throat is dry in the morning. She sometimes has cough. She has shortness of breath associated with underlying COPD, though she is getting some benefit with Advair. She does not complain of chest pain. She occasionally has nausea. Bowel function lately has been a little better. She reports having a slow urinary stream and she tends to have dribbling. Her back bothers her occasionally. She otherwise does not have any significant joint or bone pain. She does not complain of headache. She complains of being dizzy or lightheaded all the time, and she has no balance. She has numbness/tingling in her feet and legs. Lately she has been having depression. Medications: Advair Diskus 1 (250-50 mcg/dose) Aerosol Powder, Breath Activated Inhalation b.i.d., Albuterol Sulfate 1 (108 (90 base) mcg/act) Aerosol Powder, Breath Activated Inhalation four times a day PRN, B-12 1 (500 mcg) Tablet Oral daily, Fish Oil 1000 mg - Take 1 Capsule Oral daily, Imodium A-D 1 Tablet (of 4 mg) Oral b.i.d. PRN, Magnesium 1 Tablet (of 400 mg) Oral daily, Propylthiouracil 50 mg - Take 2 Tablet Oral b.i.d., Vitamin D3 1 Capsule Oral daily Allergies: BLEACH, Cephalexin, KEFLEX, and LEVAQUIN. Vital Signs: Performed on Mar 05, 2021 09:09 Height - 62.00 in Weight - 152.8 lbs (HIGH) BSA - 1.70 sq.m BMI - 27.95 Temperature - 97.2 F (LOW) Pulse - 99 /min Respiration - 21 /min BP - 164/74 mm(hg) (HIGH) O2 Sat - 97 % Pain - 0 Physical Examination: Constitutional - She appears somewhat frail generally, Eyes - Sclerae nonicteric. Conjunctivae clear, ENMT - No lesions noted in the oral cavity, Hematologic/Lymphatic - No cervical, clavicular, or axillary adenopathy, Respiratory - Lungs sound clear, Cardiovascular - Heart rhythm is regular. There is no murmur, gallop, or rub noted, Abdomen - Soft. Liver and spleen are not enlarged. There is no abdominal mass or ascites noted and there is no inguinal adenopathy, Extremities - No edema. Dorsalis pedis pulses are palpable bilaterally, Neurologic - No focal neurologic deficits noted. Lab/Imaging: CBC shows hemoglobin 9.5 g, white blood cell count 6800, and platelet count 339,000. Comprehensive metabolic profile shows stable renal function BUN 36 and creatinine 2.0 mg/dL. Bilirubin and liver enzymes are normal. Problem List: 1. Grade 3 adenocarcinoma of the endometrium, stage IIIC2 (pT1a, pN2, M0). Treatment included robotic-assisted total laparoscopic hysterectomy/bilateral salpingo-oophorectomy and pelvic and periaortic lymph node dissection on 05/04/13 followed by postoperative external beam radiation to the pelvis and periaortic lymph nodes followed by intracavitary vaginal brachial therapy. She was then given adjuvant chemotherapy with 4 cycles of carboplatin/Taxol, which she completed in February 2014. 2. She has additional history of infiltrating lobular carcinoma the left breast, stage IIA, ER/NM positive and HER-2/radha negative. Her treatment included left modified radical mastectomy in June 2003 followed by adjuvant chemotherapy and adjuvant hormonal therapy. 3. During followup she has remained moderately anemic. 4. Osteoporosis. 5. Hypertension. 6. Hyperlipidemia. 7. Chronic kidney disease. 8. COPD. 9. GERD. 10. Hyperthyroidism. Problems Addressed with this Encounter and Plan: 1. Patient with grade 3 adenocarcinoma of the endometrium, stage IIIC2 (pT1a, pN2, M0). Treatment included robotic-assisted total laparoscopic hysterectomy/bilateral salpingo-oophorectomy and pelvic and periaortic lymph node dissection on 05/04/13 followed by postoperative external beam radiation to the pelvis and periaortic lymph nodes followed by intracavitary vaginal brachial therapy. She was then given adjuvant chemotherapy with 4 cycles of carboplatin/Taxol, which she completed in February 2014. Toxicities included anemia and peripheral neuropathy. She recovered pretty well from the chemotherapy, though she has had residual neuropathy. She has continued to have somewhat marginal performance status, at least some component of which is likely associated with the neuropathy. There has been no evidence, though, for recurrence of the endometrial cancer. She remains on expectant management. 2. She has additional history of infiltrating lobular carcinoma the left breast, stage IIA, ER/NM positive and HER-2/radha negative. Her treatment included left modified radical mastectomy in June 2003 followed by adjuvant chemotherapy and adjuvant hormonal therapy. Thus far during follow-up there has been no evidence of recurrence of the breast cancer. She continues expectant management. 3. During followup she has remained moderately anemic. Some component is likely to be chemotherapy related, but some may also be attributable to the chronic kidney disease. In any case, with her hemoglobin stable between 9 and 10 g, there would be little to gain by treatment with an erythropoietin stimulating agent. As such, I will just continue to follow it expectantly. 4. Osteoporosis. She will be given Prolia 60 mg by subcutaneous injection. I will plan to repeat a DEXA scan with her next visit, which will be in 6 months. In the meantime, she still has a Port-A-Cath venous access device in place, and I will talk to Dr. Woodard about getting that removed, but she indicates she is only willing to do that if it can be done under local anesthesia. Signed By: Juan Daniel Kaplan M.D. <<Signature on File>>
== END 2021-03-05 07:07 | disposition home or self-care (01) ==
LOC: ONCMED 07:08
PROVIDERS: PCP Family Medicine; Visit Provider Internal Medicine Medical Oncology
DX: C54.1 Malignant neoplasm of endometrium (principal); C50.812 Malignant neoplasm of overlapping sites of left female breast; Z17.0 Estrogen receptor positive status [ER+]; Z90.12 Acquired absence of left breast and nipple; D64.9 Anemia, unspecified; M81.0 Age-related osteoporosis without current pathological fracture; I10 Essential (primary) hypertension; E78.5 Hyperlipidemia, unspecified; N18.9 Chronic kidney disease, unspecified; J44.9 Chronic obstructive pulmonary disease, unspecified; K21.9 Gastro-esophageal reflux disease without esophagitis; E03.9 Hypothyroidism, unspecified; Z79.811 Long term (current) use of aromatase inhibitors; Z79.899 Other long term (current) drug therapy
CPT/HCPCS: 96372; 99214; J0897

== ENCOUNTER → 2021-03-26 07:58 | Outpatient (BNVA) | payer MEDICARE, SELFPAY | PROVIDERS: PCP Family Medicine; Visit Provider Nurse Practitioner Family | DX: N39.0 Urinary tract infection, site not specified (principal) | CPT/HCPCS: 81003; 87077; 87086; 87184 ==

== ENCOUNTER → 2021-05-08 08:14 | Outpatient (BNVA) | payer MEDICARE, SELFPAY | PROVIDERS: PCP Family Medicine; Visit Provider Urology | DX: N39.0 Urinary tract infection, site not specified (principal) | CPT/HCPCS: 81003; 87077; 87086; 87184 ==

== ENCOUNTER → 2021-05-29 11:47 | Outpatient (BNVA) | payer MEDICARE, SELFPAY | PROVIDERS: PCP Family Medicine; Visit Provider Urology | DX: N18.4 Chronic kidney disease, stage 4 (severe) (principal) | CPT/HCPCS: 80048 ==

== ENCOUNTER → 2021-07-10 10:30 | Outpatient (BNVA) | payer MEDICARE, SELFPAY | PROVIDERS: PCP Family Medicine; Visit Provider Urology | DX: N39.0 Urinary tract infection, site not specified (principal) | CPT/HCPCS: 81003; 87077; 87086; 87184 ==

== ENCOUNTER → 2021-08-14 14:01 | Outpatient (BNVA) | payer MEDICARE, SELFPAY | PROVIDERS: PCP Family Medicine; Visit Provider Nurse Practitioner Family | DX: N39.0 Urinary tract infection, site not specified (principal) | CPT/HCPCS: 81003; 87077; 87086; 87184 ==

== ENCOUNTER 2021-08-29 13:14 | Outpatient (CLI) | payer MEDICARE, SELFPAY ==
--- NOTE | 2021-08-29 13:22 | MM_ITS ---
WS: [id number] RIGHT DIGITAL MAMMOGRAPHY WITH CAD CLINICAL INFORMATION: HX OF BREAST CA COMPARISON: August 27, 2020 TECHNIQUE: 3 views of the right breast were obtained. FINDINGS: Scattered fibroglandular densities of the right breast. Benign punctate calcifications. Vascular calc ification. No suspicious focal mass, asymmetry, calcifications, or architectural distortion. No evidence of cassidy gnancy. MM/[place] [id number] IMPRESSION: BI-RADS: 2-Benign FOLLOW UP: 1 Year Follow-up Recommend return to annual diagnostic mammography.
--- NOTE | 2021-08-29 14:08 | XR_ITS ---
WS: [id number] Bone mineral density performed on a [employer], 08/29/2021 Clinical data: AGE-RELATED OSTEOPOROSIS WITHOUT CURRENT PATHOLOGICAL FRACTU Comparison study: DEXA scan, 10/21/2017. Findings: The first 4 lumbar vertebral bodies demonstrated the bone mineral density of 1.263 g/cm2 for a young adult T score of 0.7. There is an slight increase in the bone mineral density compared to the prior study. Measurement of the left hip reveals a bone mineral density of 0.790 g/cm2 with a young adult T score of -1.7. Measurement of the right hip reveals the bone mineral density of 0.790 g/cm2 for young adult T score of -1.7. There is a slight increase in the bone mineral density of both hips compared to the prior study. XR/XR DEXA axial skeleton* [id number] Impression: 1. Normal bone mineral density of the lumbar spine. 2. Osteopenia of both hips.
== END 2021-08-29 13:15 | disposition home or self-care (01) ==
LOC: RADSHAW 13:19
PROVIDERS: PCP Family Medicine; Visit Provider Internal Medicine Medical Oncology
DX: M81.0 Age-related osteoporosis without current pathological fracture (principal); Z85.3 Personal history of malignant neoplasm of breast; M85.88 Other specified disorders of bone density and structure, other site
CPT/HCPCS: 77065; 77080

== ENCOUNTER 2021-09-03 09:49 | Outpatient (CLI) | payer MEDICARE, SELFPAY ==
[2021-09-03 10:52] LABS: Basophils # 0.1 10^3/uL (0.0-0.1); Basophils % 1.1 %; Eosinophils # 0.2 10^3/uL (0.0-0.8); Eosinophils % 3.4 %; Hemoglobin 9.5 g/dL (11.5-15.3); Lymphocytes # 1.4 10^3/uL (0.8-4.8); Lymphocytes % 22.3 %; Mean Corpuscular HGB Conc 29.7 g/dL (30.0-36.0); Mean Corpuscular Hemoglobin 30.7 pg (28.0-34.0); Mean Corpuscular Volume 103.6 fl (81-99); Mean Platelet Volume 9.6 fL (7.4-10.4); Monocytes # 0.5 10^3/uL (0.2-0.9); Monocytes % 7.5 %; Neutrophils # 4.18 10^3/uL (1.8-7.7); Neutrophils % 65.4 %; Nucleated Red Blood Cells % 0 %; Platelet Count 391 10^3/cmm (130-400); Red Blood Count 3.09 10^6/uL (4.1-5.3); Red Cell Distribution Width 12.3 % (12.1-15.1); White Blood Count 6.4 10^3/uL (4.0-10.0)
[2021-09-03 11:16] LABS: Alanine Aminotransferase 16 U/L (0-33); Albumin Level 4.1 g/dL (3.5-5.2); Alkaline Phosphatase 64 IU/L (35-105); Anion Gap 18.7 (5-19); Aspartate Amino Transferase 15 U/L (0-32); Blood Urea Nitrogen 29 mg/dL (8-23); Calcium 9.3 mg/dL (8.5-10.5); Carbon Dioxide 22 mmol/L (22-29); Chloride 103 mmol/L (98-107); Globulin 3.1 g/dL (1.3-4.6); Glucose 90 mg/dL (65-115); Osmolality Calculated 293 mOsm/kg (285-295); Potassium 4.7 mmol/L (3.5-5.1); Sodium 139 mmol/L (136-145); Total Bilirubin 0.2 mg/dL (0.15-1.2); Total Protein 7.2 g/dL (6.6-8.7)
[2021-09-03 11:25] LABS: Thyroid Stimulating Hormone 9.25 uIU/mL (0.27-4.20)
[2021-09-03] MEDS: denosumab 60 mg SDV SUBCUT (12:05)
--- NOTE | 2021-09-04 07:42 | ONC FU_ITS ---
Dr. Kaplan Patient Follow-Up Note Patient: Roxane Krishnan Unit #: [id number]: [id number] Dicatated By: Juan Daniel Kaplan M.D.Date of Visit:Sep 03, 2021 Onc Med Follow-up/Prog Note Chief Complaint: Breast cancer/endometrial cancer. History of Present Illness: This is an 86 year-old woman with infiltrating lobular carcinoma of the left breast, stage IIA (T1mi, pN1a, M0) and stage IIIC2 endometrial cancer. The breast cancer occurred in association with multifocal comedo carcinoma in situ. There were microscopic foci of invasive lobular carcinoma. She underwent left modified radical mastectomy in June 2003. Pathology showed involvement in 1 of 12 axillary lymph nodes. The tumor was ER/MA positive and HER-2/radha negative. She was given adjuvant chemotherapy with FEC. Due to multiple toxicities, the treatment was stopped in September 2003 after completing 4 cycles. She was then given adjuvant hormonal therapy with tamoxifen. The hormonal treatment was changed to Arimidex as of February 2006. She continued treatment through September 2009. Thus far during followup, there has been no evidence of recurrence of her breast cancer. In April 2013 she presented with postmenopausal bleeding. She was found on D&C to have endometrial cancer. On 05/04/13 she underwent modified radical robotic-assisted total laparoscopic hysterectomy, bilateral salpingo-oophorectomy, and pelvic and periaortic lymphadenectomy. Pathology showed grade 1-2 adenocarcinoma which was superficially invasive. It measured 2 x 1.5 cm. There was no cervical or parametrial involvement. The maximum depth of myometrial invasion was 2 mm/16 mm. Margins were negative. There is no vascular or lymphatic invasion in the primary tumor, but there was involvement in 2 of 5 right para-aortic lymph nodes and in 2 of 7 right pelvic lymph nodes. The final staging was IIIC2 (pT1a, pN2, M0). The tumor was classified as grade 3 based on the fact that the specimen from the initial D&C procedure contained large areas of grade 3 adenocarcinoma. She was given postoperative external beam radiation to the pelvis and periaortic regions to a total dose of 45 Gy, which she completed on 08/25/2013. She subsequently completed intracavitary vaginal brachytherapy in [place]. At the recommendation of Dr. Camarillo, she was given adjuvant chemotherapy with carboplatin/Taxol. As of 02/13/2014 she had completed 4 cycles of treatment. She was then followed on observation/expectant management. Her other medical illnesses include hypertension, hyperlipidemia, hyperthyroidism, COPD, and GERD. She also has chronic kidney disease. She has remained moderately anemic following her chemotherapy and radiation. In September 2017 she had presented with significant pain in the lower back/pelvis area. Her CT abdomen/pelvis showed extensive bilateral sacral insufficiency fractures. There was no evidence of metastatic disease. She was referred for physical therapy. She had further evaluation with DEXA scan on 10/21/2017. It showed evidence of osteopenia with T score -0.5 and lumbar spine, -2.1 in the left femoral neck, and -2.3 in the right femoral neck. She did agree to start treatment with Prolia in January 2018. She has a history of smoking a pack of cigarettes daily for 35 years, but she quit smoking more than 15 years ago. INTERIM HISTORY: She is seen for a scheduled visit. She complains that she has no energy and she continues to have limited activity tolerance, as she has a lot of back pain after she is up on her feet for any length of time. She is able to do some walking. Her ECOG score is 2. Her appetite is good. She has no fever or night sweats. She does get out of breath very easily with activity. She does not complain of cough, and she has not been having chest pain. She occasionally has nausea. She has chronic diarrhea, but it is managed adequately taking Imodium twice a day. She has ongoing bladder issues, including pain, and she has been seeing a neurologist. She does not have any other joint or bone pain, but she does tend to be stiff when she first gets up. She does not complain of headache. She says she has a lot of dizziness. She has residual neuropathy with numbness in her legs, from her feet to her knees. Medications: Advair Diskus 1 (250-50 mcg/dose) Aerosol Powder, Breath Activated Inhalation b.i.d., Albuterol Sulfate 1 (108 (90 base) mcg/act) Aerosol Powder, Breath Activated Inhalation four times a day PRN, B-12 1 (500 mcg) Tablet Oral daily, Cefuroxime Axetil 1 Tablet (of 500 mg) Oral b.i.d., Fish Oil 1000 mg - Take 1 Capsule Oral daily, Imodium A-D 1 Tablet (of 4 mg) Oral b.i.d. PRN, Magnesium 1 Tablet (of 400 mg) Oral daily, Propylthiouracil 50 mg - Take 2 Tablet Oral b.i.d., Vitamin D3 1 Capsule Oral daily Allergies: BLEACH, Cephalexin, KEFLEX, and LEVAQUIN. Vital Signs: Performed on Sep 03, 2021 11:32 Height - 62.00 in Weight - 147 lbs (LOW) BSA - 1.68 sq.m BMI - 26.89 Temperature - 97.2 F (LOW) Pulse - 84 /min Respiration - 18 /min BP - 137/65 mm(hg) O2 Sat - 98 % Pain - 0 Fatigue - 5 Physical Examination: Constitutional - She appears somewhat frail generally, Eyes - Sclerae nonicteric. Conjunctivae clear, ENMT - No lesions noted in the oral cavity, Hematologic/Lymphatic - No cervical, clavicular, or axillary adenopathy, Respiratory - Lungs sound clear, Cardiovascular - Heart rhythm is regular. There is no murmur, gallop, or rub noted, Abdomen - Soft. Liver and spleen are not enlarged. There is no abdominal mass or ascites noted and there is no inguinal adenopathy, Extremities - No edema, Neurologic - No focal neurologic deficits noted. Lab/Imaging: Test performed on Sep 03, 2021 10:12 Sodium 139 mmol/L Potassium 4.7 mmol/L Chloride 103 mmol/L CO2 22 mmol/L Anion Gap 18.7 BUN 29 mg/dL Creatinine 1.8 mg/dL Cr Clearance (Est) 24.49 mL/min Glucose 90 mg/dL Osmolality - Calculated 293 mOsm/kg Calcium 9.3 mg/dL Protein, Total 7.2 g/dL Albumin 4.1 g/dL Globulin 3.1 g/dL Bilirubin, Total 0.2 mg/dL ALT (SGPT) 16 U/L AST (SGOT) 15 U/L Alkaline Phosphatase 64 IU/L WBC 6.4 10 3/uL RBC 3.09 10 6/uL HGB 9.5 g/dL HCT 32.0 % MCV 103.6 fl MCH 30.7 pg MCHC 29.7 g/dL RDW 12.3 % Platelet Count 391 10 3/cmm MPV 9.6 fL Neutrophils 4.18 10 3/uL Lymphocytes 1.4 10 3/uL Monocytes 0.5 10 3/uL Eosinophils 0.2 10 3/uL Basophils 0.1 10 3/uL Neutrophil % 65.4 % Lymphocyte % 22.3 % Monocyte % 7.5 % Eosinophil % 3.4 % Basophils % 1.1 % NRBC % 0 % Problem List: 1. Grade 3 adenocarcinoma of the endometrium, stage IIIC2 (pT1a, pN2, M0). 2. She has additional history of infiltrating lobular carcinoma the left breast, stage IIA, ER/MA positive and HER-2/radha negative. 3. During followup she has remained moderately anemic. 4. Osteoporosis. 5. Hypertension. 6. Hyperlipidemia. 7. Chronic kidney disease. 8. COPD. 9. GERD. 10. Hyperthyroidism. Problems Addressed with this Encounter and Plan: 1. Patient with grade 3 adenocarcinoma of the endometrium, stage IIIC2 (pT1a, pN2, M0). Treatment included robotic-assisted total laparoscopic hysterectomy/bilateral salpingo-oophorectomy and pelvic and periaortic lymph node dissection on 05/04/13 followed by postoperative external beam radiation to the pelvis and periaortic lymph nodes followed by intracavitary vaginal brachial therapy. She was then given adjuvant chemotherapy with 4 cycles of carboplatin/Taxol, which she completed in February 2014. She had multiple chemotherapy related toxicities. She recovered pretty well, though she has had residual neuropathy and persistent anemia. During follow-up she has continued to have somewhat marginal performance status, at least some component of which is likely associated with the neuropathy. There has been no evidence, though, for recurrence of the endometrial cancer. She remains on expectant management. 2. She has additional history of infiltrating lobular carcinoma the left breast, stage IIA, ER/MA positive and HER-2/radha negative. Her treatment included left modified radical mastectomy in June 2003 followed by adjuvant chemotherapy and adjuvant hormonal therapy. Thus far during follow-up there has been no evidence of recurrence of the breast cancer. She continues expectant management. 3. Osteoporosis. As she has had associated pelvic insufficiency fractures, I have recommended that she continue treatment for it. She will be given Prolia 60 mg by subcutaneous injection. She returns in 6 months. Signed By: Juan Daniel Kaplan M.D. <<Signature on File>>
[2021-09-04 09:57] LABS: T3 Total 95 ng/dL (76-181)
== END 2021-09-03 09:50 | disposition home or self-care (01) ==
PROVIDERS: PCP Family Medicine; Visit Provider Internal Medicine Medical Oncology
DX: Z08 Encounter for follow-up examination after completed treatment for malignant neoplasm (principal); Z85.3 Personal history of malignant neoplasm of breast; Z85.42 Personal history of malignant neoplasm of other parts of uterus; D64.9 Anemia, unspecified; M81.0 Age-related osteoporosis without current pathological fracture; I10 Essential (primary) hypertension; E78.5 Hyperlipidemia, unspecified; N18.9 Chronic kidney disease, unspecified; J44.9 Chronic obstructive pulmonary disease, unspecified; K21.9 Gastro-esophageal reflux disease without esophagitis; E05.90 Thyrotoxicosis, unspecified without thyrotoxic crisis or storm; Z79.899 Other long term (current) drug therapy; Z92.21 Personal history of antineoplastic chemotherapy; Z92.3 Personal history of irradiation; Z90.12 Acquired absence of left breast and nipple; Z90.710 Acquired absence of both cervix and uterus
CPT/HCPCS: 36415; 80053; 84439; 84443; 84480; 85025; 90471; 90686; 96372; 99214; J0897

== ENCOUNTER → 2021-10-15 08:03 | Outpatient (BNVA) | payer MEDICARE, SELFPAY | PROVIDERS: PCP Family Medicine; Visit Provider Urology | DX: N39.0 Urinary tract infection, site not specified (principal) | CPT/HCPCS: 81003 ==

== ENCOUNTER → 2021-10-17 10:04 | Outpatient (BNVA) | payer MEDICARE, SELFPAY | PROVIDERS: PCP Family Medicine; Visit Provider Family Medicine | DX: E05.90 Thyrotoxicosis, unspecified without thyrotoxic crisis or storm (principal); J43.1 Panlobular emphysema | CPT/HCPCS: 84439; 84443; 84480 ==

== ENCOUNTER → 2021-11-26 08:07 | Outpatient (BNVA) | payer MEDICARE, SELFPAY | PROVIDERS: PCP Family Medicine; Visit Provider Nurse Practitioner Family | DX: N39.0 Urinary tract infection, site not specified (principal) | CPT/HCPCS: 81003; 87077; 87086; 87184 ==

== ENCOUNTER 2022-01-23 13:26 | Outpatient (CLI) | payer MEDICARE, SELFPAY ==
--- NOTE | 2022-01-23 13:43 | XR_ITS ---
WS: [id number] XR lumbar spine 2-3V* [id number] REASON FOR EXAM: low back pain FINDINGS: Rotatory scoliosis convex right on the AP view. Straightening of the normal lordosis on the lateral v iew. Compared to the previous examination of 09/24/2017, there has been progression of the degenerative di sc disease in the L3-L4, L4-L5, and L5-S1 disc spaces with severe narrowing and degenerative gas. Also there has been interval moderate biconcave compression deformity of L1 and mild biconcave compre ssion deformity of L2. In addition there is been the interval development of ill-defined sclerosis an d linear lucencies within the sacral wings. XR/XR lumbar spine 2-3V* [id number] IMPRESSION: Interval progression of degenerative disc disease. Interval compression fractures of L1 and L2. The chronicity is uncertain. Interval development of insufficiency fractures of the sacrum. Chronicity is un certain.
--- NOTE | 2022-01-23 13:43 | XR_ITS ---
WS: [id number] XR pelvis 1-2V* [id number] REASON FOR EXAM: oa of pelvis FINDINGS: Compared to previous examination of 09/24/2017, patient has developed increase in ill-defined sclerot ic changes in the sacral wings in a rather symmetric fashion. There are ill-defined linear lucencies associated with this abnormality. Compared to the previous examination there is widening and increased sclerosis in the symphysis. Also, compared to previous examination there is ill-defined sclerosis in the subarticular acetabulum and within left iliac wing. XR/XR pelvis 1-2V* [id number] IMPRESSION: The CT scan of 09/24/2017 demonstrates that there were bilateral sacral insuffi ciency fractures at that time and the abnormalities now seen are progression or healing. The new sclerotic changes in the symphysis with widening are of uncertain etiol ogy. They may also relate to insufficiency fractures. The remaining sclerotic changes are also of uncertain etiology possibly also re lated to insufficiency fractures. There may be an underlying metabolic bone disease under treatment.
== END 2022-01-23 13:27 | disposition home or self-care (01) ==
LOC: RAD 13:29
PROVIDERS: PCP Family Medicine; Visit Provider Family Medicine
DX: M16.10 Unilateral primary osteoarthritis, unspecified hip (principal); S32.019A Unspecified fracture of first lumbar vertebra, initial encounter for closed fracture; S32.029A Unspecified fracture of second lumbar vertebra, initial encounter for closed fracture; X58.XXXA Exposure to other specified factors, initial encounter
CPT/HCPCS: 72100; 72170

== ENCOUNTER → 2022-02-16 14:01 | Outpatient (BNVA) | payer MEDICARE, SELFPAY | PROVIDERS: PCP Family Medicine; Referring Provider Family Medicine; Visit Provider Internal Medicine | DX: M81.0 Age-related osteoporosis without current pathological fracture (principal); N18.9 Chronic kidney disease, unspecified; Z87.891 Personal history of nicotine dependence | CPT/HCPCS: 99204 ==

== ENCOUNTER 2022-03-18 11:55 | Oncology outpatient (recurring) (ONCR) | payer MEDICARE, SELFPAY ==
[2022-03-18 12:28] LABS: Basophils # 0.1 10^3/uL (0.0-0.1); Basophils % 0.7 %; Eosinophils # 0.2 10^3/uL (0.0-0.8); Eosinophils % 2.5 %; Hematocrit 32.5 % (37.0-47.0); Hemoglobin 9.7 g/dL (11.5-15.3); Lymphocytes # 1.8 10^3/uL (0.8-4.8); Lymphocytes % 22.1 %; Mean Corpuscular HGB Conc 29.8 g/dL (30.0-36.0); Mean Corpuscular Hemoglobin 28.7 pg (28.0-34.0); Mean Corpuscular Volume 96.2 fl (81-99); Mean Platelet Volume 8.8 fL (7.4-10.4); Monocytes # 0.7 10^3/uL (0.2-0.9); Monocytes % 8.5 %; Neutrophils # 5.33 10^3/uL (1.8-7.7); Nucleated Red Blood Cells % 0 %; Platelet Count 387 10^3/cmm (130-400); Red Blood Count 3.38 10^6/uL (4.1-5.3); Red Cell Distribution Width 12.5 % (12.1-15.1); White Blood Count 8.1 10^3/uL (4.0-10.0)
[2022-03-18 12:50] LABS: Alanine Aminotransferase 13 U/L (0-33); Albumin Level 4.3 g/dL (3.5-5.2); Alkaline Phosphatase 62 IU/L (35-105); Aspartate Amino Transferase 19 U/L (0-32); Blood Urea Nitrogen 32 mg/dL (8-23); Calcium 9.9 mg/dL (8.5-10.5); Carbon Dioxide 22 mmol/L (22-29); Chloride 99 mmol/L (98-107); Globulin 3.2 g/dL (1.3-4.6); Glucose 100 mg/dL (65-115); Osmolality Calculated 283 mOsm/kg (285-295); Sodium 133 mmol/L (136-145); Total Bilirubin 0.3 mg/dL (0.15-1.2); Total Protein 7.5 g/dL (6.6-8.7)
[2022-03-18 14:52] LABS: Free T4 Free Thyroxine 0.96 ng/dL (0.82-1.77); Thyroid Stimulating Hormone 3.32 uIU/mL (0.27-4.20)
[2022-03-18] MEDS: denosumab 60 mg SDV SUBCUT (14:58)
[2022-03-19 09:48] LABS: T3 Total 73 ng/dL (76-181)
== END 2022-04-07 23:59 | disposition home or self-care (01) ==
PROVIDERS: PCP Family Medicine; Visit Provider Internal Medicine Medical Oncology
DX: M80.08XA Age-related osteoporosis with current pathological fracture, vertebra(e), initial encounter for fracture (principal); Z85.42 Personal history of malignant neoplasm of other parts of uterus; Z85.3 Personal history of malignant neoplasm of breast; Z87.891 Personal history of nicotine dependence
CPT/HCPCS: 36415; 80053; 84439; 84443; 84480; 85025; 96372; 99214; 99999; J0897

== ENCOUNTER 2022-09-23 09:54 | Oncology outpatient (recurring) (ONCR) | payer MEDICARE, SELFPAY ==
[2022-09-23 11:53] LABS: Basophils # 0.1 10^3/uL (0.0-0.1); Basophils % 0.7 %; Eosinophils # 0.3 10^3/uL (0.0-0.8); Hematocrit 32.9 % (37.0-47.0); Hemoglobin 9.9 g/dL (11.5-15.3); Lymphocytes # 1.4 10^3/uL (0.8-4.8); Lymphocytes % 18.7 %; Mean Corpuscular HGB Conc 30.1 g/dL (30.0-36.0); Mean Corpuscular Hemoglobin 29.5 pg (28.0-34.0); Mean Corpuscular Volume 97.9 fl (81-99); Mean Platelet Volume 8.7 fL (7.4-10.4); Monocytes # 0.5 10^3/uL (0.2-0.9); Monocytes % 6.3 %; Neutrophils # 5.23 10^3/uL (1.8-7.7); Neutrophils % 69.9 %; Nucleated Red Blood Cells % 0 %; Platelet Count 417 10^3/cmm (130-400); Red Blood Count 3.36 10^6/uL (4.1-5.3); Red Cell Distribution Width 12.9 % (12.1-15.1); White Blood Count 7.5 10^3/uL (4.0-10.0)
[2022-09-23 12:11] LABS: Alanine Aminotransferase 12 U/L (0-33); Albumin Level 4.3 g/dL (3.5-5.2); Alkaline Phosphatase 64 U/L (35-105); Anion Gap 20.7 (5-19); Aspartate Amino Transferase 17 U/L (0-32); Blood Urea Nitrogen 56 mg/dL (8-23); Calcium 10.1 mg/dL (8.5-10.5); Carbon Dioxide 18 mmol/L (22-29); Chloride 103 mmol/L (98-107); Globulin 3.2 g/dL (1.3-4.6); Glucose 99 mg/dL (65-115); Osmolality Calculated 300 mOsm/kg (285-295); Potassium 4.7 mmol/L (3.5-5.1); Sodium 137 mmol/L (136-145); Total Bilirubin 0.2 mg/dL (0.15-1.2); Total Protein 7.5 g/dL (6.6-8.7)
[2022-09-23 12:24] LABS: Thyroid Stimulating Hormone 3.07 uIU/mL (0.27-4.20)
[2022-09-23] MEDS: denosumab 60 mg SDV SUBCUT (12:28)
[2022-09-23 12:48] LABS: 25 Hydroxy Vitamin D 46 ng/mL (30-100)
[2022-09-23 12:54] LABS: Free T4 Free Thyroxine 1.03 ng/dL (0.82-1.77)
[2022-09-24 06:03] LABS: T3 Total 80 ng/dL (76-181)
== END 2022-10-07 23:59 | disposition home or self-care (01) ==
PROVIDERS: PCP Family Medicine; Visit Provider Internal Medicine Medical Oncology
DX: Z08 Encounter for follow-up examination after completed treatment for malignant neoplasm; Z85.42 Personal history of malignant neoplasm of other parts of uterus; Z85.3 Personal history of malignant neoplasm of breast; Z90.12 Acquired absence of left breast and nipple; D63.1 Anemia in chronic kidney disease; N18.4 Chronic kidney disease, stage 4 (severe); I12.9 Hypertensive chronic kidney disease with stage 1 through stage 4 chronic kidney disease, or unspecified chronic kidney disease; M81.0 Age-related osteoporosis without current pathological fracture; M48.50XA Collapsed vertebra, not elsewhere classified, site unspecified, initial encounter for fracture; Z79.899 Other long term (current) drug therapy; Z92.21 Personal history of antineoplastic chemotherapy; Z92.3 Personal history of irradiation; Z87.891 Personal history of nicotine dependence
CPT/HCPCS: 36415; 80053; 82306; 84439; 84443; 84480; 85025; 96372; 99214; J0897

== ENCOUNTER 2022-11-09 13:18 | Outpatient (CLI) | payer MEDICARE, SELFPAY ==
--- NOTE | 2022-11-09 15:00 | CTR_ITS ---
PROCEDURE INFORMATION: Exam: CT Abdomen And Pelvis Without Contrast Exam date and time: 11/09/2022 3:06 PM Age: 87 years old Clinical indication: Prior surgery; Surgery type: Hyst, left breast; Patient HX: Low back pain x 8 years with numbness and weakness in bilateral legs TECHNIQUE: Imaging protocol: Computed tomography of the abdomen and pelvis without contrast. Radiation optimization: All CT scans at this facility use at least one of these dose optimization techniques: automated exposure control; mA and/or kV adjustment per patient size (includes targeted exams where dose is matched to clinical indication); or iterative reconstruction. COMPARISON: CT abdomen pelvis wo con [id number] 09/24/2017 10:17 AM RADIATION DOSE METRICS: Total DLP (mGy-cm): 817.22 FINDINGS: Liver: Normal. No mass. Gallbladder and bile ducts: Normal. No calcified stones. No ductal dilation. Pancreas: Normal. No ductal dilation. Spleen: Normal. No splenomegaly. Adrenal glands: Normal. No mass. Kidneys and ureters: Moderate atrophy of the kidneys. No renal stones. Few scattered cysts noted measuring up to 2.4 cm in the left kidney. No hydronephrosis. Stomach and bowel: Colonic diverticulosis. No obstruction. No mucosal thickening. Appendix: No evidence of appendicitis. Intraperitoneal space: Unremarkable. No free air. No significant fluid collection. Vasculature: Unremarkable. No abdominal aortic aneurysm. Lymph nodes: Unremarkable. No enlarged lymph nodes. Urinary bladder: Unremarkable as visualized. Reproductive: Hysterectomy. Bones/joints: No acute fracture. Chronic appearing moderate compression deformity of L1. Soft tissues: Unremarkable. CT/CT abdomen pelvis con [id number] IMPRESSION: 1. No acute findings. 2. Chronic appearing moderate compression deformity of L1. COMMENTS: Consistent with the [employer]'s Incidental Findings Committee white paper (J Am Jesus Radiol 2018): Any incidental renal lesion less than 1 cm or classified as too small to characterize, or any incidental cystic renal lesion characterized as simple-appearing, is likely benign. No follow-up imaging is recommended for these lesions per consensus recommendations based on imaging criteria.
[2022-11-09] MEDS: iohexol 350 mg/mL 500 mL Btl (per mL) PO (15:14)
== END 2022-11-09 13:19 | disposition home or self-care (01) ==
LOC: RAD 13:18
PROVIDERS: PCP Family Medicine; Visit Provider Internal Medicine Medical Oncology
DX: M54.50 Low back pain, unspecified (principal); M43.8X6 Other specified deforming dorsopathies, lumbar region
CPT/HCPCS: 74176; Q9967

== ENCOUNTER 2023-03-29 10:56 | Oncology outpatient (recurring) (ONCR) | payer MEDICARE, SELFPAY ==
[2023-03-29 11:39] LABS: Basophils # 0.1 10^3/uL (0.0-0.1); Basophils % 0.7 %; Eosinophils # 0.5 10^3/uL (0.0-0.8); Eosinophils % 5.4 %; Hematocrit 31.5 % (37.0-47.0); Hemoglobin 9.4 g/dL (11.5-15.3); Lymphocytes % 23.2 %; Mean Corpuscular HGB Conc 29.8 g/dL (30.0-36.0); Mean Corpuscular Hemoglobin 29.6 pg (28.0-34.0); Mean Corpuscular Volume 99.1 fl (81-99); Mean Platelet Volume 8.7 fL (7.4-10.4); Monocytes # 0.5 10^3/uL (0.2-0.9); Monocytes % 5.8 %; Neutrophils # 5.53 10^3/uL (1.8-7.7); Neutrophils % 64.5 %; Nucleated Red Blood Cells % 0 %; Platelet Count 402 10^3/cmm (130-400); Red Blood Count 3.18 10^6/uL (4.1-5.3); Red Cell Distribution Width 12.9 % (12.1-15.1); White Blood Count 8.6 10^3/uL (4.0-10.0)
[2023-03-29 12:20] LABS: 25 Hydroxy Vitamin D 57 ng/mL (30-100); Alanine Aminotransferase 8 U/L (0-33); Albumin Level 4.3 g/dL (3.5-5.2); Alkaline Phosphatase 60 U/L (35-105); Anion Gap 20.4 (5-19); Aspartate Amino Transferase 14 U/L (0-32); Blood Urea Nitrogen 63 mg/dL (8-23); Calcium 9.9 mg/dL (8.5-10.5); Carbon Dioxide 19 mmol/L (22-29); Chloride 106 mmol/L (98-107); Globulin 2.9 g/dL (1.3-4.6); Glucose 100 mg/dL (65-115); Osmolality Calculated 308 mOsm/kg (285-295); Potassium 5.4 mmol/L (3.5-5.1); Sodium 140 mmol/L (136-145); Total Bilirubin 0.2 mg/dL (0.15-1.2); Total Protein 7.2 g/dL (6.6-8.7)
[2023-03-29 13:31] VITALS: BP 140/68; PULSE 81; RESP 18; TEMP 36.3; O2SAT 97
[2023-03-29] MEDS: denosumab 60 mg SDV SUBCUT (13:36)
[2023-03-29 13:38] VITALS: BP 140/64; PULSE 79; RESP 18; TEMP 36.3; O2SAT 97
== END 2023-04-07 23:59 | disposition home or self-care (01) ==
PROVIDERS: PCP Family Medicine; Visit Provider Internal Medicine Medical Oncology
DX: Z08 Encounter for follow-up examination after completed treatment for malignant neoplasm (principal); Z85.42 Personal history of malignant neoplasm of other parts of uterus; Z85.3 Personal history of malignant neoplasm of breast; Z90.12 Acquired absence of left breast and nipple; D63.1 Anemia in chronic kidney disease; N18.4 Chronic kidney disease, stage 4 (severe); I12.9 Hypertensive chronic kidney disease with stage 1 through stage 4 chronic kidney disease, or unspecified chronic kidney disease; M81.0 Age-related osteoporosis without current pathological fracture; M48.50XA Collapsed vertebra, not elsewhere classified, site unspecified, initial encounter for fracture; Z79.899 Other long term (current) drug therapy; Z92.21 Personal history of antineoplastic chemotherapy; Z92.3 Personal history of irradiation; Z87.891 Personal history of nicotine dependence
CPT/HCPCS: 80053; 82306; 85025; 96372; 99214; J0897

== ENCOUNTER 2023-09-27 08:30 | Oncology outpatient (recurring) (ONCR) | payer MEDICARE, SELFPAY ==
[2023-09-09 12:30] VITALS: BP 157/66; PULSE 62; RESP 17; TEMP 36.8; O2SAT 93
[2023-09-09 13:00] LABS: Basophils # 0.1 10^3/uL (0.0-0.1); Basophils % 1.1 %; Eosinophils # 0.4 10^3/uL (0.0-0.8); Eosinophils % 4.6 %; Hematocrit 30.3 % (36-47); Lymphocytes # 2.2 10^3/uL (0.8-4.8); Lymphocytes % 27.8 %; Mean Corpuscular HGB Conc 29.7 g/dL (30-55); Mean Corpuscular Hemoglobin 28.8 pg (27-33); Mean Corpuscular Volume 97.1 fl (85-98); Mean Platelet Volume 8.4 fL (7.4-10.4); Monocytes # 0.5 10^3/uL (0.2-0.9); Monocytes % 6.4 %; Neutrophils # 4.78 10^3/uL (1.8-7.7); Neutrophils % 59.7 %; Nucleated Red Blood Cells % 0 %; Platelet Count 392 10^3/cmm (157-399); Red Blood Count 3.12 10^6/uL (3.85-5.65); Red Cell Distribution Width 13.2 % (12.1-15.1); White Blood Count 8.01 10^3/uL (3.29-11.43)
[2023-09-09 13:44] LABS: 25 Hydroxy Vitamin D 55 ng/mL (30-100); Alanine Aminotransferase 8 U/L (0-33); Albumin Level 4.3 g/dL (3.5-5.2); Alkaline Phosphatase 61 U/L (35-105); Anion Gap 14.9 (5-19); Aspartate Amino Transferase 15 U/L (0-32); Blood Urea Nitrogen 42 mg/dL (8-23); Calcium 8.9 mg/dL (8.5-10.5); Carbon Dioxide 24 mmol/L (22-29); Chloride 104 mmol/L (98-107); Globulin 3.2 g/dL (1.3-4.6); Glucose 90 mg/dL (65-115); Osmolality Calculated 296 mOsm/kg (285-295); Potassium 4.9 mmol/L (3.5-5.1); Sodium 138 mmol/L (136-145); Thyroid Stimulating Hormone 3.48 uIU/mL (0.27-4.20); Total Bilirubin 0.2 mg/dL (0.15-1.2); Total Protein 7.5 g/dL (6.6-8.7)
[2023-09-09 14:16] LABS: Free T4 Free Thyroxine 1.11 ng/dL (0.82-1.77)
[2023-09-09 17:08] LABS: Ferritin 176 ng/mL (15-150); Iron 38 ug/dL (37-145); Percent Saturation 18.5 % (20-50); Total Iron Binding Capacity 205 mcg/dl; Unsaturated Iron Binding 167 ug/dL (112-347)
[2023-09-10 11:49] LABS: T3 Total 105 ng/dL (76-181)
[2023-09-27] MEDS: denosumab 60 mg SDV SUBCUT (08:37)
[2023-09-27 08:40] VITALS: BP 133/80; PULSE 87; RESP 16; TEMP 36.2; O2SAT 100
== END 2023-10-07 23:59 | disposition home or self-care (01) ==
PROVIDERS: Nurse Practitioner Family; PCP Family Medicine; Visit Provider Internal Medicine Medical Oncology
DX: M81.0 Age-related osteoporosis without current pathological fracture (principal)
CPT/HCPCS: 36415; 80053; 82306; 82668; 82728; 83540; 83550; 84439; 84443; 84480; 85025; 96372; 99214; J0897

== ENCOUNTER 2023-11-03 12:02 | Outpatient (CLI) | payer MEDICARE, SELFPAY ==
--- NOTE | 2023-11-03 12:15 | USR_ITS ---
PROCEDURE INFORMATION: Exam: US Retroperitoneal; Complete; Kidneys and Bladder Exam date and time: 11/03/2023 12:20 PM Age: 88 years old Clinical indication: Abnormal findings; Abnormal lab test; Abnormal kidney function lab tests; Additional info: Ckd stage iv Acute kidney injury. TECHNIQUE: Imaging protocol: Real-time ultrasound of the retroperitoneum with image documentation. Complete exam focused on the kidneys and bladder. COMPARISON: CT abdomen pelvis con [id number] 11/09/2022 3:06 PM FINDINGS: Right kidney: The right kidney measures 8.5 cm in length. There is thinning of the right renal parenchyma and mild increase in echogenicity. Left kidney: The left kidney measures 10.9 cm in length. A left renal 2.4 x 2.8 x 2.5 cm cyst is present with no demonstrated complicating features. Left renal parenchymal thinning with increased echogenicity. Aorta: The visualized abdominal aorta demonstrates atherosclerosis and mild ectasia. Urinary bladder: Limited visualization of the urinary bladder is grossly unremarkable. US/US renal BI* [id number] IMPRESSION: Renal parenchymal thinning bilaterally, mild atrophy of the right kidney. However no hydronephrosis identified. Left renal 2.8 cm cyst appears slightly enlarged from 11/09/2022 CT.
== END 2023-11-03 12:03 | disposition home or self-care (01) ==
LOC: RAD 12:03
PROVIDERS: PCP Family Medicine; Visit Provider Family Medicine
DX: N18.4 Chronic kidney disease, stage 4 (severe) (principal); N17.9 Acute kidney failure, unspecified; N26.1 Atrophy of kidney (terminal); N28.1 Cyst of kidney, acquired
CPT/HCPCS: 76770

== ENCOUNTER 2023-12-13 11:16 | Oncology outpatient (recurring) (ONCR) | payer MEDICARE, SELFPAY ==
[2023-12-13 12:10] LABS: Basophils # 0.1 10^3/uL (0.0-0.1); Basophils % 0.9 %; Eosinophils # 0.2 10^3/uL (0.0-0.8); Eosinophils % 3.1 %; Hematocrit 29.8 % (36-47); Lymphocytes # 1.9 10^3/uL (0.8-4.8); Lymphocytes % 27.7 %; Mean Corpuscular HGB Conc 30.9 g/dL (30-55); Mean Corpuscular Hemoglobin 30.1 pg (27-33); Mean Corpuscular Volume 97.4 fl (85-98); Mean Platelet Volume 8.3 fL (7.4-10.4); Monocytes # 0.5 10^3/uL (0.2-0.9); Monocytes % 6.8 %; Neutrophils # 4.14 10^3/uL (1.8-7.7); Neutrophils % 61.4 %; Nucleated Red Blood Cells % 0 %; Platelet Count 330 10^3/cmm (157-399); Red Blood Count 3.06 10^6/uL (3.85-5.65); Red Cell Distribution Width 12.8 % (12.1-15.1); White Blood Count 6.75 10^3/uL (3.29-11.43)
[2023-12-13 12:30] LABS: Alanine Aminotransferase 11 U/L (0-33); Alkaline Phosphatase 56 U/L (35-105); Anion Gap 17.3 (5-19); Aspartate Amino Transferase 16 U/L (0-32); Blood Urea Nitrogen 36 mg/dL (8-23); Calcium 8.7 mg/dL (8.5-10.5); Carbon Dioxide 22 mmol/L (22-29); Chloride 104 mmol/L (98-107); Globulin 2.9 g/dL (1.3-4.6); Glucose 144 mg/dL (65-115); Osmolality Calculated 297 mOsm/kg (285-295); Potassium 5.3 mmol/L (3.5-5.1); Sodium 138 mmol/L (136-145); Total Bilirubin 0.2 mg/dL (0.15-1.2); Total Protein 6.9 g/dL (6.6-8.7)
[2023-12-13 15:41] LABS: Ferritin 130 ng/mL (15-150); Iron 53 ug/dL (37-145); Lactate Dehydrogenase 181 U/L (135-214); Percent Saturation 27.3 % (20-50); Reticulocyte % 1.3 % (0.5-2.0); Thyroid Stimulating Hormone 3.21 uIU/mL (0.27-4.20); Total Iron Binding Capacity 194 mcg/dl; Unsaturated Iron Binding 141 ug/dL (112-347); Vitamin B12 1367 pg/mL (232-1245)
[2023-12-13 15:42] LABS: Folate Level 15.9 ng/mL (4.8-37.3)
[2023-12-13 16:38] LABS: Immunoglobulin IGA 59 mg/dL (70-400); Immunoglobulin IGG 1005 mg/dL (700-1600); Immunoglobulin IGM 228 mg/dL (40-230)
[2023-12-13 17:27] LABS: LAB Peripheral Smear Sent for Review
[2023-12-14 08:54] LABS: PROTEIN, TOTAL 7.2 g/dL (6.1-8.1)
[2023-12-14 11:55] LABS: KAPPA LIGHT CHAIN, FREE, SERUM 66.3 mg/L (3.3-19.4); LAMBDA LIGHT CHAIN, FREE, SERU 31.6 mg/L (5.7-26.3)
[2023-12-15 08:49] LABS: ABNORMAL PROTEIN BAND 1 0.1 g/dL (NONE DETECTED); ALBUMIN 4.3 g/dL (3.8-4.8); ALPHA 1 GLOBULIN 0.3 g/dL (0.2-0.3); ALPHA 2 GLOBULIN 0.9 g/dL (0.5-0.9); BETA 1 GLOBULIN 0.4 g/dL (0.4-0.6); BETA 2 GLOBULIN 0.3 g/dL (0.2-0.5); GAMMA GLOBULIN 1.1 g/dL (0.8-1.7)
[2023-12-15 18:59] LABS: Copper Level 84 mcg/dL (70-175)
[2023-12-16 13:39] LABS: Soluble Transferrin Receptor 0.98 mg/L (0.76-1.76)
[2023-12-16 14:59] LABS: CREATININE, 24 HOUR URINE 0.47 g/24 h (0.50-2.15); PROTEIN, TOTAL, 24 HR UR 259 mg/24 h (<150); Protein/Creatinine Ratio 0.548 (<0.150); Protein/Creatinine Ratio 548 mg/g creat (<150)
[2023-12-17 09:19] LABS: Methylmalonic Acid 236 nmol/L (87-318)
[2023-12-24 18:08] LABS: ALBUMIN 33 %; ALPHA-1-GLOBULINS 11 %; ALPHA-2-GLOBULINS 8 %; BETA GLOBULINS 12 %; GAMMA GLOBULINS 36 %
== END 2024-01-06 23:59 | disposition home or self-care (01) ==
PROVIDERS: Internal Medicine; Nurse Practitioner Family; PCP Family Medicine; Visit Provider Internal Medicine Medical Oncology
DX: M81.0 Age-related osteoporosis without current pathological fracture (principal); Z08 Encounter for follow-up examination after completed treatment for malignant neoplasm; Z85.42 Personal history of malignant neoplasm of other parts of uterus; Z85.3 Personal history of malignant neoplasm of breast; Z90.12 Acquired absence of left breast and nipple; D63.1 Anemia in chronic kidney disease; N18.4 Chronic kidney disease, stage 4 (severe); I12.9 Hypertensive chronic kidney disease with stage 1 through stage 4 chronic kidney disease, or unspecified chronic kidney disease; Z79.899 Other long term (current) drug therapy; Z92.21 Personal history of antineoplastic chemotherapy; Z87.891 Personal history of nicotine dependence; M48.56XG Collapsed vertebra, not elsewhere classified, lumbar region, subsequent encounter for fracture with delayed healing; R53.83 Other fatigue; Z90.710 Acquired absence of both cervix and uterus; Z90.79 Acquired absence of other genital organ(s); Z90.722 Acquired absence of ovaries, bilateral
CPT/HCPCS: 36415; 80053; 82525; 82607; 82728; 82746; 82784; 83540; 83550; 83615; 83883; 83921; 84155; 84156; 84165; 84166; 84238; 84443; 85025; 85045; 99214

== ENCOUNTER 2024-03-28 10:45 | Oncology outpatient (recurring) (ONCR) | payer MEDICARE, SELFPAY ==
[2024-03-28 11:27] LABS: Basophils # 0.1 10^3/uL (0.0-0.1); Eosinophils # 0.4 10^3/uL (0.0-0.8); Eosinophils % 5.8 %; Hematocrit 30.1 % (36-47); Lymphocytes # 1.7 10^3/uL (0.8-4.8); Mean Corpuscular HGB Conc 30.2 g/dL (30-55); Mean Corpuscular Hemoglobin 29.7 pg (27-33); Mean Corpuscular Volume 98.4 fl (85-98); Mean Platelet Volume 8.5 fL (7.4-10.4); Monocytes # 0.5 10^3/uL (0.2-0.9); Monocytes % 7.1 %; Neutrophils # 4.27 10^3/uL (1.8-7.7); Neutrophils % 61.7 %; Nucleated Red Blood Cells % 0 %; Platelet Count 382 10^3/cmm (157-399); Red Blood Count 3.06 10^6/uL (3.85-5.65); Red Cell Distribution Width 12.8 % (12.1-15.1); White Blood Count 6.92 10^3/uL (3.29-11.43)
[2024-03-28 11:44] LABS: Alanine Aminotransferase 11 U/L (0-33); Alkaline Phosphatase 68 U/L (35-105); Blood Urea Nitrogen 46 mg/dL (8-23); Calcium 9.4 mg/dL (8.5-10.5); Carbon Dioxide 20 mmol/L (22-29); Chloride 106 mmol/L (98-107); Ferritin 173 ng/mL (15-150); Globulin 3.6 g/dL (1.3-4.6); Glucose 101 mg/dL (65-115); Osmolality Calculated 300 mOsm/kg (285-295); Sodium 139 mmol/L (136-145); Total Bilirubin 0.2 mg/dL (0.15-1.2); Total Protein 7.6 g/dL (6.6-8.7)
[2024-03-28 11:48] LABS: Anion Gap 18.9 (5-19); Aspartate Amino Transferase 16 U/L (0-32); Potassium 5.9 mmol/L (3.5-5.1)
[2024-03-28] MEDS: denosumab 60 mg SDV SUBCUT (13:31)
[2024-03-28 13:56] LABS: Iron 55 ug/dL (37-145)
[2024-03-28 14:46] LABS: Percent Saturation 25.5 % (20-50); Total Iron Binding Capacity 215 mcg/dl; Unsaturated Iron Binding 160 ug/dL (112-347)
== END 2024-04-07 23:59 | disposition home or self-care (01) ==
PROVIDERS: Internal Medicine; Nurse Practitioner Family; PCP Family Medicine; Visit Provider Internal Medicine Medical Oncology
DX: Z53.9 Procedure and treatment not carried out, unspecified reason (principal); Z08 Encounter for follow-up examination after completed treatment for malignant neoplasm; Z85.3 Personal history of malignant neoplasm of breast; M80.80XG Other osteoporosis with current pathological fracture, unspecified site, subsequent encounter for fracture with delayed healing; Z92.21 Personal history of antineoplastic chemotherapy; Z90.11 Acquired absence of right breast and nipple; Z92.3 Personal history of irradiation; Z85.42 Personal history of malignant neoplasm of other parts of uterus; N18.4 Chronic kidney disease, stage 4 (severe); D63.1 Anemia in chronic kidney disease; Z87.891 Personal history of nicotine dependence
CPT/HCPCS: 36415; 80053; 82728; 83540; 83550; 85025; 96372; 99214; J0897

== ENCOUNTER → 2024-04-05 09:13 | Outpatient (BNVA) | payer MEDICARE, SELFPAY | PROVIDERS: PCP Family Medicine; Visit Provider Family Medicine | DX: E05.90 Thyrotoxicosis, unspecified without thyrotoxic crisis or storm (principal); N18.4 Chronic kidney disease, stage 4 (severe); N39.0 Urinary tract infection, site not specified | CPT/HCPCS: 80069; 82043; 82310; 82652; 83970; 84100; 84443; 85025 ==

== ENCOUNTER 2024-04-12 12:39 | Oncology outpatient (recurring) (ONCR) | payer MEDICARE, SELFPAY ==
--- NOTE | 2024-04-12 13:00 | XR_ITS ---
WS: [id number] SCREENING DEXA SCAN [employer] CLINICAL INFORMATION: post menopausal, history of AI use COMPARISON: 2020 FINDINGS: The L1-L4 bone mineral density measures 1.463 g/cm2. This corresponds to a T score score of 2.4 and Z score of 4.6. Left femoral neck bone mineral density measures 0.576. This corresponds to a T score of -2.6 and Z sc ore of 0.3. Right femoral neck bone mineral density measures 0.532. This corresponds to a T score -2.9 of and Z s core of -0.1. Mean femoral neck bone mineral density measures 0.554. This corresponds to a T score of -2.7 and Z sc ore of 0.1. XR/XR DEXA axial skeleton* [id number] IMPRESSION: Normal bone mineralization lumbar spine. Osteoporosis femoral necks. Patient's FRAX calculated 10 year probability for major osteoporotic fracture i s 15.9% and osteoporotic hip fracture is 5.7%. Bone mineral density in the lumbar spine increased 15.8% Bone mineral density femoral necks increased 2.4%
[2024-04-12 13:12] LABS: Creatinine Urine, Random 87 mg/dL (28-217); Microalbumin Random Urine 4 ug/dL (0-20)
[2024-04-12 13:17] LABS: Microalbum Creatinine Ratio Ur 46 mg/dL (0-20)
--- NOTE | 2024-04-12 13:30 | MM_ITS ---
WS: [id number] RIGHT 3D TOMOSYNTHESIS DIGITAL MAMMOGRAPHY WITH CAD CLINICAL INFORMATION: surveillance HISTORY: LEFT breast cancer COMPARISON: 2020 TECHNIQUE: 3 views of the right breast were obtained. FINDINGS: The right breast is composed of heterogeneous fibroglandular density tissue, which can limit the dete ction of small underlying mass lesions. Vascular calcifications. Incidental punctate and lucent cente red calcifications. No suspicious focal mass, asymmetry, calcifications, or architectural distortion. No evidence of cassidy gnancy. MM/[place] [id number] IMPRESSION: BI-RADS: 2-Benign FOLLOW UP: 1 Year Follow-up Recommend return to annual diagnostic mammography.
== END 2024-05-07 23:59 | disposition home or self-care (01) ==
LOC: ONCMED 12:40 → RAD 12:40 → ONCMED 05-23 07:39
PROVIDERS: PCP Family Medicine; Visit Provider Internal Medicine Medical Oncology
DX: Z85.3 Personal history of malignant neoplasm of breast; Z78.0 Asymptomatic menopausal state; Z79.811 Long term (current) use of aromatase inhibitors; N18.4 Chronic kidney disease, stage 4 (severe); N39.0 Urinary tract infection, site not specified; M81.0 Age-related osteoporosis without current pathological fracture
CPT/HCPCS: 77061; 77080; 82044; G0279

== ENCOUNTER → 2024-04-20 08:29 | Outpatient (BNVA) | payer MEDICARE, SELFPAY | PROVIDERS: PCP Family Medicine; Visit Provider Family Medicine | DX: N18.4 Chronic kidney disease, stage 4 (severe) (principal) | CPT/HCPCS: 80069 ==

== ENCOUNTER 2024-06-29 10:17 | Oncology outpatient (recurring) (ONCR) | payer MEDICARE, SELFPAY ==
[2024-06-29 11:24] LABS: Basophils # 0.1 10^3/uL (0.0-0.1); Basophils % 0.7 %; Eosinophils # 0.3 10^3/uL (0.0-0.8); Eosinophils % 3.3 %; Lymphocytes # 1.2 10^3/uL (0.8-4.8); Mean Corpuscular HGB Conc 30.3 g/dL (30-55); Mean Corpuscular Hemoglobin 29.7 pg (27-33); Mean Corpuscular Volume 98.1 fl (85-98); Mean Platelet Volume 8.6 fL (7.4-10.4); Monocytes # 0.5 10^3/uL (0.2-0.9); Monocytes % 6.9 %; Neutrophils # 5.68 10^3/uL (1.8-7.7); Nucleated Red Blood Cells % 0 %; Platelet Count 334 10^3/cmm (157-399); Red Blood Count 3.16 10^6/uL (3.85-5.65); Red Cell Distribution Width 12.2 % (12.1-15.1); White Blood Count 7.67 10^3/uL (3.29-11.43)
[2024-06-29 11:41] LABS: Alanine Aminotransferase 8 U/L (0-33); Albumin Level 4.2 g/dL (3.5-5.2); Alkaline Phosphatase 56 U/L (35-105); Aspartate Amino Transferase 14 U/L (0-32); Blood Urea Nitrogen 44 mg/dL (8-23); Calcium 9.2 mg/dL (8.5-10.5); Carbon Dioxide 22 mmol/L (22-29); Chloride 106 mmol/L (98-107); Glucose 99 mg/dL (65-115); Iron 30 ug/dL (37-145); Osmolality Calculated 297 mOsm/kg (285-295); Percent Saturation 15.2 % (20-50); Sodium 138 mmol/L (136-145); Total Bilirubin 0.3 mg/dL (0.15-1.2); Total Iron Binding Capacity 197 mcg/dl; Total Protein 7.2 g/dL (6.6-8.7); Unsaturated Iron Binding 167 ug/dL (112-347)
== END 2024-07-08 23:55 | disposition home or self-care (01) ==
PROVIDERS: Nurse Practitioner Family; PCP Family Medicine; Visit Provider Internal Medicine Medical Oncology
DX: Z08 Encounter for follow-up examination after completed treatment for malignant neoplasm (principal); Z85.3 Personal history of malignant neoplasm of breast; Z85.42 Personal history of malignant neoplasm of other parts of uterus; I12.9 Hypertensive chronic kidney disease with stage 1 through stage 4 chronic kidney disease, or unspecified chronic kidney disease; N18.4 Chronic kidney disease, stage 4 (severe); Z87.891 Personal history of nicotine dependence; D63.1 Anemia in chronic kidney disease; Z90.710 Acquired absence of both cervix and uterus; Z90.79 Acquired absence of other genital organ(s); Z90.722 Acquired absence of ovaries, bilateral; Z90.12 Acquired absence of left breast and nipple; M80.08XG Age-related osteoporosis with current pathological fracture, vertebra(e), subsequent encounter for fracture with delayed healing; Z92.3 Personal history of irradiation; Z92.21 Personal history of antineoplastic chemotherapy; Z92.25 Personal history of immunosuppression therapy; Z78.0 Asymptomatic menopausal state; Z79.899 Other long term (current) drug therapy
CPT/HCPCS: 36415; 80053; 83540; 83550; 85025; 99214

== ENCOUNTER 2024-09-25 12:19 | Oncology outpatient (recurring) (ONCR) | payer MEDICARE, SELFPAY ==
[2024-09-25 12:53] LABS: Basophils # 0.1 10^3/uL (0.0-0.1); Basophils % 0.8 %; Eosinophils # 0.3 10^3/uL (0.0-0.8); Eosinophils % 3.3 %; Hematocrit 27.9 % (36-47); Lymphocytes # 1.7 10^3/uL (0.8-4.8); Mean Corpuscular HGB Conc 30.5 g/dL (30-55); Mean Corpuscular Volume 98.6 fl (85-98); Mean Platelet Volume 8.8 fL (7.4-10.4); Monocytes # 0.5 10^3/uL (0.2-0.9); Monocytes % 6.8 %; Neutrophils # 5.19 10^3/uL (1.8-7.7); Neutrophils % 66.6 %; Nucleated Red Blood Cells % 0 %; Platelet Count 329 10^3/cmm (157-399); Red Blood Count 2.83 10^6/uL (3.85-5.65); Red Cell Distribution Width 12.7 % (12.1-15.1); White Blood Count 7.79 10^3/uL (3.29-11.43)
[2024-09-25 13:15] LABS: Alanine Aminotransferase 7 U/L (0-33); Albumin Level 4.1 g/dL (3.5-5.2); Alkaline Phosphatase 55 U/L (35-105); Anion Gap 16.2 (5-19); Aspartate Amino Transferase 14 U/L (0-32); Blood Urea Nitrogen 53 mg/dL (8-23); Calcium 9.6 mg/dL (8.5-10.5); Carbon Dioxide 24 mmol/L (22-29); Chloride 103 mmol/L (98-107); Ferritin 146 ng/mL (15-150); Globulin 2.8 g/dL (1.3-4.6); Glucose 111 mg/dL (65-115); Iron 51 ug/dL (37-145); Osmolality Calculated 303 mOsm/kg (285-295); Percent Saturation 26.2 % (20-50); Potassium 4.2 mmol/L (3.5-5.1); Sodium 139 mmol/L (136-145); Total Bilirubin 0.2 mg/dL (0.15-1.2); Total Iron Binding Capacity 194 mcg/dl; Total Protein 6.9 g/dL (6.6-8.7); Unsaturated Iron Binding 143 ug/dL (112-347)
[2024-09-25] MEDS: denosumab 60 mg SDV SUBCUT (14:58)
== END 2024-10-07 23:59 | disposition home or self-care (01) ==
PROVIDERS: Nurse Practitioner Family; PCP Family Medicine; Visit Provider Internal Medicine Medical Oncology
DX: N18.4 Chronic kidney disease, stage 4 (severe); Z85.3 Personal history of malignant neoplasm of breast; Z85.42 Personal history of malignant neoplasm of other parts of uterus; I12.9 Hypertensive chronic kidney disease with stage 1 through stage 4 chronic kidney disease, or unspecified chronic kidney disease; Z87.891 Personal history of nicotine dependence; D63.1 Anemia in chronic kidney disease; Z90.710 Acquired absence of both cervix and uterus; Z90.79 Acquired absence of other genital organ(s); Z90.722 Acquired absence of ovaries, bilateral; Z90.12 Acquired absence of left breast and nipple; M80.08XG Age-related osteoporosis with current pathological fracture, vertebra(e), subsequent encounter for fracture with delayed healing; Z92.3 Personal history of irradiation; Z92.21 Personal history of antineoplastic chemotherapy; Z92.25 Personal history of immunosuppression therapy; Z78.0 Asymptomatic menopausal state; Z79.899 Other long term (current) drug therapy
CPT/HCPCS: 36415; 80053; 82728; 83540; 83550; 85025; 96372; 99214; J0897

== ENCOUNTER 2024-10-10 08:49 | Outpatient (CLI) | payer MEDICARE, SELFPAY ==
[2024-10-10 09:16] LABS: Basophils # 0.1 10^3/uL (0.0-0.1); Basophils % 0.8 %; Eosinophils # 0.2 10^3/uL (0.0-0.8); Eosinophils % 2.4 %; Hematocrit 29.9 % (36-47); Lymphocytes # 1.8 10^3/uL (0.8-4.8); Lymphocytes % 23.4 %; Mean Corpuscular HGB Conc 30.1 g/dL (30-55); Mean Corpuscular Hemoglobin 29.6 pg (27-33); Mean Corpuscular Volume 98.4 fl (85-98); Mean Platelet Volume 8.3 fL (7.4-10.4); Monocytes # 0.5 10^3/uL (0.2-0.9); Neutrophils # 5.03 10^3/uL (1.8-7.7); Neutrophils % 67.1 %; Nucleated Red Blood Cells % 0 %; Platelet Count 349 10^3/cmm (157-399); Red Blood Count 3.04 10^6/uL (3.85-5.65); Red Cell Distribution Width 12.8 % (12.1-15.1); White Blood Count 7.49 10^3/uL (3.29-11.43)
[2024-10-10 09:35] LABS: Bilirubin Urine Negative (Negative); Blood Urine Negative (Negative); Glucose Urine UA Negative (Normal); Ketones Urine Negative (Negative); Leukocyte Esterase Urine 1+ (Negative); Nitrate Urine Positive (Negative); Protein Urine Negative (Negative); Specific Gravity, Urine 1.005 (1.005-1.030); Urine Appearance Clear (CLEAR); Urine Color Yellow (Yellow); Urobilinogen Urine 0.2 mg/dL (Negative)
[2024-10-10 09:35] LABS: Albumin Level 4.3 g/dL (3.5-5.2); Anion Gap 18.4 (5-19); Blood Urea Nitrogen 42 mg/dL (8-23); Calcium 8.7 mg/dL (8.5-10.5); Carbon Dioxide 20 mmol/L (22-29); Chloride 99 mmol/L (98-107); Glucose 104 mg/dL (65-115); Phosphorus 3.3 mg/dL (2.5-4.5); Potassium 4.4 mmol/L (3.5-5.1); Sodium 133 mmol/L (136-145)
[2024-10-10 09:40] LABS: Add Urine Microscopic? YES; Bacteria Urine 4+ /hpf; Hyaline Casts Urine 0-4 /lpf; RBC Urine 0-2 /hpf (0-2); Squamous Epithelial Cell Urine 0-5 /hpf (0-5); WBC Urine 21-50 /hpf (0-5)
[2024-10-10 09:58] LABS: Add Urine Culture? Yes
[2024-10-10 10:26] LABS: UPRO/UCREAT Ratio 0.28 mg/mg CR; Urine Creatinine 25 mg/dL (28-217); Urine Protein Random 7 mg/dL
[2024-10-10 11:38] LABS: Calcium 9.2 mg/dL (8.5-10.5)
[2024-10-10 11:45] LABS: Parathyroid Hormone 201.6 pg/mL (15-65)
== END 2024-10-10 08:50 | disposition home or self-care (01) ==
LOC: LAB 08:52
PROVIDERS: Visit Provider Registered Nurse
DX: N18.4 Chronic kidney disease, stage 4 (severe) (principal)
CPT/HCPCS: 36415; 80069; 81001; 82310; 82570; 83970; 84156; 85025; 87077; 87086; 87186

== ENCOUNTER 2024-11-27 12:18 | Oncology outpatient (recurring) (ONCR) | payer MEDICARE, SELFPAY ==
[2024-11-27 13:04] LABS: Basophils # 0.1 10^3/uL (0.0-0.1); Basophils % 0.9 %; Eosinophils # 0.3 10^3/uL (0.0-0.8); Eosinophils % 3.2 %; Hematocrit 30.5 % (36-47); Lymphocytes % 25.5 %; Mean Corpuscular HGB Conc 29.2 g/dL (30-55); Mean Corpuscular Hemoglobin 30.1 pg (27-33); Mean Platelet Volume 8.6 fL (7.4-10.4); Monocytes # 0.6 10^3/uL (0.2-0.9); Neutrophils % 63.1 %; Nucleated Red Blood Cells % 0 %; Platelet Count 382 10^3/cmm (157-399); Red Blood Count 2.96 10^6/uL (3.85-5.65); Red Cell Distribution Width 12.8 % (12.1-15.1); White Blood Count 7.91 10^3/uL (3.29-11.43)
[2024-11-27 13:24] LABS: Alanine Aminotransferase 10 U/L (0-33); Albumin Level 4.1 g/dL (3.5-5.2); Alkaline Phosphatase 67 U/L (35-105); Anion Gap 16.5 (5-19); Aspartate Amino Transferase 17 U/L (0-32); Blood Urea Nitrogen 32 mg/dL (8-23); Calcium 9.7 mg/dL (8.5-10.5); Carbon Dioxide 25 mmol/L (22-29); Chloride 100 mmol/L (98-107); Creatinine Clr Calc Pharmacy 15.2575; Ferritin 144 ng/mL (15-150); Glucose 94 mg/dL (65-115); Iron 44 ug/dL (37-145); Osmolality Calculated 291 mOsm/kg (285-295); Percent Saturation 23.2 % (20-50); Potassium 4.5 mmol/L (3.5-5.1); Sodium 137 mmol/L (136-145); Total Bilirubin 0.3 mg/dL (0.15-1.2); Total Iron Binding Capacity 189 mcg/dl; Total Protein 7.1 g/dL (6.6-8.7); Unsaturated Iron Binding 145 ug/dL (112-347)
== END 2024-12-08 23:59 | disposition home or self-care (01) ==
PROVIDERS: Nurse Practitioner Family; Visit Provider Internal Medicine Medical Oncology
DX: Z08 Encounter for follow-up examination after completed treatment for malignant neoplasm (principal); Z85.42 Personal history of malignant neoplasm of other parts of uterus; D64.9 Anemia, unspecified; Z79.899 Other long term (current) drug therapy; Z87.891 Personal history of nicotine dependence; Z85.3 Personal history of malignant neoplasm of breast; Z92.3 Personal history of irradiation; Z92.21 Personal history of antineoplastic chemotherapy; Z92.23 Personal history of estrogen therapy; Z90.12 Acquired absence of left breast and nipple; M80.80XG Other osteoporosis with current pathological fracture, unspecified site, subsequent encounter for fracture with delayed healing; Z90.722 Acquired absence of ovaries, bilateral
CPT/HCPCS: 36415; 80053; 82728; 83540; 83550; 85025; 99214

== ENCOUNTER 2025-03-26 08:55 | Oncology outpatient (recurring) (ONCR) | payer MEDICARE, SELFPAY ==
[2025-03-26 09:31] LABS: Basophils # 0.1 10^3/uL (0.0-0.1); Basophils % 0.7 %; Eosinophils # 0.3 10^3/uL (0.0-0.8); Eosinophils % 3.9 %; Hematocrit 31.3 % (36-47); Lymphocytes # 1.5 10^3/uL (0.8-4.8); Lymphocytes % 17.7 %; Mean Corpuscular HGB Conc 29.4 g/dL (30-55); Mean Corpuscular Hemoglobin 29.6 pg (27-33); Mean Corpuscular Volume 100.6 fl (85-98); Mean Platelet Volume 8.5 fL (7.4-10.4); Monocytes # 0.5 10^3/uL (0.2-0.9); Monocytes % 5.9 %; Neutrophils # 6.11 10^3/uL (1.8-7.7); Neutrophils % 71.4 %; Nucleated Red Blood Cells % 0 %; Platelet Count 337 10^3/cmm (157-399); Red Blood Count 3.11 10^6/uL (3.85-5.65); Red Cell Distribution Width 12.9 % (12.1-15.1); White Blood Count 8.54 10^3/uL (3.29-11.43)
[2025-03-26 09:47] LABS: Alanine Aminotransferase 8 U/L (0-33); Albumin Level 4.2 g/dL (3.5-5.2); Alkaline Phosphatase 59 U/L (35-105); Anion Gap 19.2 (5-19); Aspartate Amino Transferase 13 U/L (0-32); Blood Urea Nitrogen 40 mg/dL (8-23); Calcium 9.5 mg/dL (8.5-10.5); Carbon Dioxide 20 mmol/L (22-29); Chloride 103 mmol/L (98-107); Creatinine Clr Calc Pharmacy 13.8441; Ferritin 166 ng/mL (15-150); Globulin 3.1 g/dL (1.3-4.6); Glucose 100 mg/dL (65-115); Iron 60 ug/dL (37-145); Osmolality Calculated 296 mOsm/kg (285-295); Percent Saturation 27.9 % (20-50); Potassium 4.2 mmol/L (3.5-5.1); Sodium 138 mmol/L (136-145); Total Bilirubin 0.3 mg/dL (0.15-1.2); Total Iron Binding Capacity 215 mcg/dl; Total Protein 7.3 g/dL (6.6-8.7); Unsaturated Iron Binding 155 ug/dL (112-347)
[2025-03-26 10:21] LABS: Folate Level 13.5 ng/mL (4.8-37.3)
[2025-03-26] MEDS: denosumab 60 mg SDV SUBCUT (10:29)
[2025-03-26 10:43] LABS: Vitamin B12 > 2000 pg/mL (232-1245)
== END 2025-04-07 23:59 | disposition home or self-care (01) ==
PROVIDERS: Internal Medicine Medical Oncology; PCP Family Medicine; Visit Provider Internal Medicine Medical Oncology
DX: Z53.9 Procedure and treatment not carried out, unspecified reason; Z08 Encounter for follow-up examination after completed treatment for malignant neoplasm; Z85.42 Personal history of malignant neoplasm of other parts of uterus; Z85.3 Personal history of malignant neoplasm of breast; D64.9 Anemia, unspecified; R03.0 Elevated blood-pressure reading, without diagnosis of hypertension; M80.80XG Other osteoporosis with current pathological fracture, unspecified site, subsequent encounter for fracture with delayed healing; M54.9 Dorsalgia, unspecified; Z79.899 Other long term (current) drug therapy; Z90.722 Acquired absence of ovaries, bilateral; Z90.12 Acquired absence of left breast and nipple; Z92.21 Personal history of antineoplastic chemotherapy; Z92.23 Personal history of estrogen therapy
CPT/HCPCS: 80053; 82607; 82728; 82746; 83540; 83550; 85025; 96372; 96377; 99214; J0897

== ENCOUNTER 2025-04-17 08:40 | Outpatient (CLI) | payer MEDICARE, SELFPAY ==
[2025-04-17 09:47] LABS: Basophils # 0.1 10^3/uL (0.0-0.1); Eosinophils # 0.2 10^3/uL (0.0-0.8); Eosinophils % 3.4 %; Hematocrit 31.1 % (36-47); Lymphocytes # 1.4 10^3/uL (0.8-4.8); Lymphocytes % 19.4 %; Mean Corpuscular HGB Conc 29.3 g/dL (30-55); Mean Corpuscular Hemoglobin 30.5 pg (27-33); Mean Corpuscular Volume 104.4 fl (85-98); Mean Platelet Volume 8.6 fL (7.4-10.4); Monocytes # 0.6 10^3/uL (0.2-0.9); Monocytes % 7.9 %; Neutrophils # 4.81 10^3/uL (1.8-7.7); Neutrophils % 67.7 %; Nucleated Red Blood Cells % 0 %; Platelet Count 367 10^3/cmm (157-399); Red Blood Count 2.98 10^6/uL (3.85-5.65); Red Cell Distribution Width 12.7 % (12.1-15.1)
[2025-04-17 10:14] LABS: Parathyroid Hormone 264.3 pg/mL (15-65)
[2025-04-17 10:24] LABS: 25 Hydroxy Vitamin D 51 ng/mL (30-100); Albumin Level 4.1 g/dL (3.5-5.2); Anion Gap 19.8 (5-19); Blood Urea Nitrogen 41 mg/dL (8-23); Calcium 9.1 mg/dL (8.5-10.5); Carbon Dioxide 20 mmol/L (22-29); Chloride 105 mmol/L (98-107); Glucose 92 mg/dL (65-115); Phosphorus 3.5 mg/dL (2.5-4.5); Potassium 4.8 mmol/L (3.5-5.1); Sodium 140 mmol/L (136-145)
[2025-04-17 10:27] LABS: Creatinine Urine, Random 87 mg/dL (28-217); Microalbum Creatinine Ratio Ur 34 mg/dL (0-20); Microalbumin Random Urine 3 ug/dL (0-20)
== END 2025-04-17 08:41 | disposition home or self-care (01) ==
PROVIDERS: PCP Family Medicine; Visit Provider Registered Nurse
DX: N18.4 Chronic kidney disease, stage 4 (severe) (principal)
CPT/HCPCS: 36415; 80069; 82044; 82306; 82310; 83970; 85025

== ENCOUNTER 2025-09-24 11:14 | Oncology outpatient (recurring) (ONCR) | payer MEDICARE, SELFPAY ==
[2025-09-24 11:46] LABS: Hematocrit 32.1 % (36-47); Hemoglobin 9.30 g/dL (11.27-16.99); Mean Corpuscular HGB Conc 29.0 g/dL (30-55); Mean Corpuscular Hemoglobin 29.6 pg (27-33); Mean Corpuscular Volume 102.2 fl (85-98); Nucleated Red Blood Cells % 0 %; Platelet Count 359 10^3/cmm (157-399); Red Blood Count 3.14 10^6/uL (3.85-5.65); White Blood Count 7.85 10^3/uL (3.29-11.43)
[2025-09-24 12:07] LABS: Alanine Aminotransferase 8 U/L (0-33); Albumin Level 4.2 g/dL (3.5-5.2); Alkaline Phosphatase 63 U/L (35-105); Anion Gap 16.9 (5-19); Aspartate Amino Transferase 13 U/L (0-32); Blood Urea Nitrogen 51 mg/dL (8-23); Calcium 9.8 mg/dL (8.5-10.5); Carbon Dioxide 23 mmol/L (22-29); Chloride 106 mmol/L (98-107); Ferritin 201 ng/mL (15-150); Globulin 3.6 g/dL (1.3-4.6); Glucose 96 mg/dL (65-115); Iron 73 ug/dL (37-145); Osmolality Calculated 306 mOsm/kg (285-295); Potassium 4.9 mmol/L (3.5-5.1); Sodium 141 mmol/L (136-145); Total Iron Binding Capacity 225 mcg/dl; Total Protein 7.8 g/dL (6.6-8.7); Unsaturated Iron Binding 152 ug/dL (112-347)
[2025-09-24 12:23] LABS: Vitamin B12 1892 pg/mL (232-1245)
[2025-09-24] MEDS: denosumab 60 mg SDV (Infusion Clinic Only) SUBCUT (14:06)
== END 2025-10-07 23:59 | disposition home or self-care (01) ==
PROVIDERS: Internal Medicine Medical Oncology; PCP Family Medicine; Visit Provider Nurse Practitioner Family
DX: Z08 Encounter for follow-up examination after completed treatment for malignant neoplasm (principal); Z85.42 Personal history of malignant neoplasm of other parts of uterus; Z85.3 Personal history of malignant neoplasm of breast; D64.9 Anemia, unspecified; M80.80XG Other osteoporosis with current pathological fracture, unspecified site, subsequent encounter for fracture with delayed healing; R39.89 Other symptoms and signs involving the genitourinary system; M54.50 Low back pain, unspecified; R03.0 Elevated blood-pressure reading, without diagnosis of hypertension; Z90.12 Acquired absence of left breast and nipple; Z79.899 Other long term (current) drug therapy; Z90.710 Acquired absence of both cervix and uterus; Z92.3 Personal history of irradiation; Z90.722 Acquired absence of ovaries, bilateral; Z92.21 Personal history of antineoplastic chemotherapy
CPT/HCPCS: 36415; 80053; 82607; 82728; 82746; 83540; 83550; 85025; 96372; 99214; J0897

== ENCOUNTER 2025-10-25 09:46 | Outpatient (CLI) | payer MEDICARE, SELFPAY ==
[2025-10-25 10:45] LABS: Hematocrit 27.9 % (36-47); Hemoglobin 8.20 g/dL (11.27-16.99); Mean Corpuscular HGB Conc 29.4 g/dL (30-55); Mean Corpuscular Hemoglobin 29.4 pg (27-33); Mean Corpuscular Volume 100.0 fl (85-98); Nucleated Red Blood Cells % 0 %; Platelet Count 445 10^3/cmm (157-399); Red Blood Count 2.79 10^6/uL (3.85-5.65); White Blood Count 9.55 10^3/uL (3.29-11.43)
[2025-10-25 11:14] LABS: Creatinine Urine, Random 59 mg/dL (28-217)
[2025-10-25 11:16] LABS: Calcium 9.7 mg/dL (8.5-10.5)
[2025-10-25 11:16] LABS: Microalbum Creatinine Ratio Ur 441 mg/dL (0-20)
[2025-10-25 12:36] LABS: Albumin Level 3.9 g/dL (3.5-5.2); Anion Gap 19.9 (5-19); Blood Urea Nitrogen 69 mg/dL (8-23); Calcium 9.9 mg/dL (8.5-10.5); Carbon Dioxide 24 mmol/L (22-29); Chloride 102 mmol/L (98-107); Glucose 108 mg/dL (65-115); Potassium 4.9 mmol/L (3.5-5.1); Sodium 141 mmol/L (136-145)
== END 2025-10-25 09:47 | disposition home or self-care (01) ==
PROVIDERS: PCP Family Medicine; Visit Provider Registered Nurse
DX: E87.5 Hyperkalemia (principal); N18.4 Chronic kidney disease, stage 4 (severe); D63.1 Anemia in chronic kidney disease
CPT/HCPCS: 36415; 80069; 82044; 82310; 83970; 85025